=== PATIENT | female | born 1970 | race Caucasian/White ===

== ENCOUNTER 2016-09-28 10:03 | Emergency (ER) | payer OTHER ==
[~2016-09-28] VITALS: Ht 170.2 cm; Wt 87.8 kg
[~2016-09-28 10:03] MED LIST: ACHD5005 PO; ALPR.5T PO; ALPR1TAB2 PO; BSP5T; CYCL10TA9 PO; EST1.25T; ESZO3TAB30; ESZO3TAB30 PO; FLDR.1T; HYDR-3454 PO; HYOS0.3710 PO; MTP25TSR; NAPR500T PO; ONDN4T PO; OXYC-12 PO; OXYC-197 PO; OXYC-201 PO; PANT40TA2 PO; POLY17PO6 PO; QUET400T PO; SEROQUEL; SUCR1TAB36 PO
--- NOTE | 2016-09-28 11:28 | ED GI ---
General Chief Complaint: Abdominal/GI Problems Stated Complaint: ABD PAIN Nursing Triage Note: C/O ABD DISTENSION. STATES PAIN IS WORSE AFTER EATING OR MOVING Sepsis Screen: No Definite Risk Source of Information: Patient Exam Limitations: No Limitations History of Present Illness Time Seen By Provider: 11:26 Initial Comments To ER with abdominal distention and epigastric/periumbilical abdominal pain and firmness. This is been present for the past year since having her gallbladder out but worse for the past 4 days. She's had nausea and chills but no measured fever. No dysuria. Last bowel movement was yesterday and was normal. States that she's been excessively fatigued lately and states that her recent thyroid studies by her primary care physician were abnormal. She has seen Dr. Chris in [place] for this abdominal discomfort in the past and was told to "keep an eye on it" she states. She states that she was told that her common bile duct had "shut down" following an ERCP Timing/Duration: Getting Worse (chronic) Severity/Quality: Moderate Radiation: Epigastric Activities at Onset: None Associated Symptoms: Denies Symptoms Allergies and Home Medications Allergies Coded Allergies: hydrocodone (Unverified Adverse Reaction, Severe, ANXIETY, 08/22/15) Home Medications Alprazolam Unknown Strength Tablet, 1 MG PO TID, (Reported) Eszopiclone 3 Mg Tablet, 3 MG PO HS, (Reported) Ondansetron HCl 4 Mg Tab, 4 MG PO Q6H PRN for NAUSEA, (Reported) Pantoprazole Sodium 40 Mg Tablet.dr, 40 MG PO DAILY, #30 Ref 5 Prescribed by: CORONA ANDREWS on 08/26/15 1206 Polyethylene Glycol 3350 17 Gm Powd.pack, 17 GM PO BID for 10 Days Prescribed by: LOVE BEAVER on 09/02/15 1210 Quetiapine Fumarate 400 Mg Tablet, 400 MG PO HS, (Reported) Sucralfate 1 Gm Tablet, 1 GM PO TID, #30 Ref 0 Prescribed by: CORONA ANDREWS on 08/26/15 1207 Review of Systems Constitutional: see HPI EENTM: No Symptoms Reported Respiratory: No Symptoms Reported Gastrointestinal: See HPI, Abdominal Pain, Denies Constipated, Denies Diarrhea , Nausea Genitourinary: No Symptoms Reported Musculoskeletal: no symptoms reported Skin: no symptoms reported Psychiatric/Neurological: No Symptoms Reported Past Csqtzgz-Ncomoa-Tsgjiw Hx Patient Social History Alcohol Use: Occasionally Uses Recreational Drug Use: No Smoking Status: Current Everyday Smoker Type Used: Cigarettes Recent Foreign Travel: No Contact w/Someone Who Travel: No Recent Infectious Disease Expo: No Recent Hopitalizations: Yes Seasonal Allergies Seasonal Allergies: No Surgeries HX Surgeries: Yes (bladder surgery X3) Surgeries: Gallbladder Respiratory Hx Respiratory Disorders: No Cardiovascular Hx Cardiac Disorders: No Neurological Hx Neurological Disorders: No Reproductive System Hx Reproductive Disorders: No Sexually Transmitted Disease: No HIV/AIDS: No 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 Disorders: Denies 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 Genitourinary Hx Genitourinary Disorders: Yes Genitourinary Disorders: UTI-Chronic Gastrointestinal Hx Gastrointestinal Disorders: Yes Gastrointestinal Disorders: Gastroesophageal Reflux, Gall Bladder Disease, Irritable Bowel Musculoskeletal Hx Musculoskeletal Disorders: No Musculoskeletal Disorders: Arthritis Endocrine Hx Endocrine Disorders: No HEENT HX ENT Disorders: No (GLASSES) Loss of Vision: Bilateral Cancer Hx Cancer: No Psychosocial Hx Psychiatric Problems: Yes (PANIC ATTACKS) Behavioral Health Disorders: Anxiety, Depression Integumentary HX Skin/Integumentary Disorder: No Blood Transfusions Hx Blood Disorders: No Adverse Reaction to a Blood Tr: No Family Medical History Significant Family History: No Pertinent Family Hx Physical Exam Vital Signs VS - Last 72 Hours, by Label 09/28/16 10:33 Temp 98.7 Pulse 95 Resp 18 B/P (MAP) 109/67 Pulse Ox 98 O2 Delivery Room Air Capillary Refill : Less Than 3 Seconds General Appearance: WD/WN, no apparent distress HEENT: PERRL/EOMI, normal ENT inspection Neck: non-tender, full range of motion Respiratory: normal breath sounds, no respiratory distress, no accessory muscle use Cardiovascular: regular rate, rhythm, no murmur Gastrointestinal: normal bowel sounds, soft, abnormal bowel sounds (hypoactive) , other (firm) Extremities: normal range of motion, non-tender Neurologic/Psychiatric: alert, normal mood/affect, oriented x 3 Skin: normal color, warm/dry Progress/Results/Core Measures Results/Orders Lab Results Laboratory Tests Test 09/28/16 11:40 09/28/16 12:37 Range/Units White Blood Count 8.2 4.3-11.0 10^3/uL Red Blood Count 4.33 L 4.35-5.85 10^6/uL Hemoglobin 14.2 11.5-16.0 G/DL Hematocrit 43 35-52 % Mean Corpuscular Volume 100 H 80-99 FL Mean Corpuscular Hemoglobin 33 25-34 PG Mean Corpuscular Hemoglobin Concent 33 32-36 G/DL Red Cell Distribution Width 13.5 10.0-14.5 % Platelet Count 335 130-400 10^3/uL Mean Platelet Volume 10.0 7.4-10.4 FL Neutrophils (%) (Auto) 65 42-75 % Lymphocytes (%) (Auto) 25 12-44 % Monocytes (%) (Auto) 8 0-12 % Eosinophils (%) (Auto) 2 0-10 % Basophils (%) (Auto) 1 0-10 % Neutrophils # (Auto) 5.3 1.8-7.8 X 10^3 Lymphocytes # (Auto) 2.0 1.0-4.0 X 10^3 Monocytes # (Auto) 0.6 0.0-1.0 X 10^3 Eosinophils # (Auto) 0.2 0.0-0.3 10^3/uL Basophils # (Auto) 0.0 0.0-0.1 10^3/uL Sodium Level 141 135-145 MMOL/L Potassium Level 4.4 3.6-5.0 MMOL/L Chloride Level 106 98-107 MMOL/L Carbon Dioxide Level 26 21-32 MMOL/L Anion Gap 9 5-14 MMOL/L Blood Urea Nitrogen 16 7-18 MG/DL Creatinine 0.88 0.60-1.30 MG/DL Estimat Glomerular Filtration Rate > 60 BUN/Creatinine Ratio 18 Glucose Level 101 70-105 MG/DL Calcium Level 9.6 8.5-10.1 MG/DL Total Bilirubin 0.3 0.1-1.0 MG/DL Aspartate Amino Transf (AST/SGOT) 30 5-34 U/L Alanine Aminotransferase (ALT/SGPT) 41 0-55 U/L Alkaline Phosphatase 109 40-136 U/L Total Protein 7.4 6.4-8.2 G/DL Albumin 4.5 3.2-4.5 G/DL Lipase 10 8-78 U/L Thyroid Stimulating Hormone (TSH) 1.05 0.35-4.94 UIU/ML Free Thyroxine 0.76 0.70-1.48 NG/DL Urine Color YELLOW Urine Clarity CLEAR Urine pH 6 5-9 Urine Specific [place] 1.015 L 1.016-1.022 Urine Protein NEGATIVE NEGATIVE Urine Glucose (UA) NEGATIVE NEGATIVE Urine Ketones NEGATIVE NEGATIVE Urine Nitrite NEGATIVE NEGATIVE Urine Bilirubin NEGATIVE NEGATIVE Urine Urobilinogen NORMAL NORMAL MG/DL Urine Leukocyte Esterase NEGATIVE NEGATIVE Urine RBC (Auto) 1+ H NEGATIVE Urine RBC NONE /HPF Urine WBC 0-2 /HPF Urine Squamous Epithelial Cells 2-5 /HPF Urine Crystals NONE /LPF Urine Bacteria TRACE /HPF Urine Casts NONE /LPF Urine Mucus NEGATIVE /LPF Urine Culture Indicated NO My Orders Orders - LOVE BEAVER APRN Cbc With Automated Diff (09/28/16 11:24) Thyroid Stimulating Hormone (09/28/16 11:24) Free T4 (Free Thyroxine) (09/28/16 11:24) Comprehensive Metabolic Panel (09/28/16 11:24) Lipase (09/28/16 11:24) Ua Culture If Indicated (09/28/16 11:24) Saline Lock/Iv-Start (09/28/16 11:24) Ct Abdomen/Pelvis W (09/28/16 11:24) Ketorolac Injection (Toradol Injection) (09/28/16 11:30) Ondansetron Injection (Zofran Injectio (09/28/16 11:45) Iohexol Injection (Omnipaque 350 Mg/Ml 1 (09/28/16 12:15) Sodium Chloride Flush (Catheter Flush Sy (09/28/16 12:15) Ns (Ivpb) (Sodium Chloride 0.9% Ivpb Bag (09/28/16 12:15) Ns Iv 1000 Ml (Sodium Chloride 0.9%) (09/28/16 12:45) Medications Given in ED Current Medications Medications Dose Ordered Sig/Pascual Route Start Time Stop Time Status Last Admin Dose Admin Iohexol 100 ml ONCE ONCE IV 09/28/16 12:15 09/28/16 12:16 DC 09/28/16 12:56 100 ML Ketorolac Tromethamine 30 mg ONCE ONCE IVP 09/28/16 11:30 09/28/16 11:31 DC 09/28/16 11:48 30 MG Ondansetron HCl 4 mg ONCE ONCE IVP 09/28/16 11:45 09/28/16 11:46 DC 09/28/16 11:48 4 MG Sodium Chloride 100 ml ONCE ONCE IV 09/28/16 12:15 09/28/16 12:16 DC 09/28/16 12:57 80 ML Vital Signs/I&O Vital Sign - Last 12Hours 09/28/16 10:33 Temp 98.7 Pulse 95 Resp 18 B/P (MAP) 109/67 Pulse Ox 98 O2 Delivery Room Air Blood Pressure Mean: 81 Departure Impression Impression: Primary Impression: Abdominal pain Additional Impression: Ventral hernia without obstruction or gangrene Disposition: HOME, SELF-CARE Condition: Stable Departure-Patient Inst. Decision time for Depature: 13:12 Referrals: TRAVIS PEREZ MD (PCP/Family) Primary Care Physician GUILLERMO MARTINEZ BRETT D DO JENKINS, XAVIER M MD KIDO, TAKAAKI MD Patient Instructions: Acute Abdomen (Belly Pain), Adult (DC) Add. Discharge Instructions: 1. Follow-up with one of the surgeons 2. Pain medication as directed 3. All discharge instructions reviewed with patient and/or family. Voiced understanding. Scripts Oxycodone HCl/Acetaminophen (Oxycodone-Acetaminophen 5-325) 1 Each Tablet 1 EACH PO Q6H Y for PAIN-MODERATE, #14 TAB Prov: LOVE BEAVER MILIEU THERAPIST 09/28/16 Ondansetron (Zofran Odt) 8 Mg Tab.rapdis 8 MG PO Q6H Y for NAUSEA/VOMITING-1ST LINE, #10 TAB Prov: LOVE BEAVER MILIEU THERAPIST 09/28/16 LOVE BEAVER MILIEU THERAPIST September 28, 2016 11:28
[2016-09-28] MEDS ORDERED: KETOROLAC 30 MG/ML VIAL IVP ONE (11:30)
[2016-09-28] MEDS ORDERED: ONDANSETRON 4 MG/2 ML (SDV) Z0FRAN IVP ONE (11:45)
[2016-09-28 11:50] LABS: BASOPHILS % (AUTO) 1 % (0-10); EOSINOPHILS # (AUTO) 0.2 10^3/uL (0.0-0.3); EOSINOPHILS % (AUTO) 2 % (0-10); LYMPHOCYTES % (AUTO) 25 % (12-44); MEAN CORPUSCULAR HEMOGLOBIN 33 PG (25-34); MEAN CORPUSCULAR HGB CONC 33 G/DL (32-36); MEAN CORPUSCULAR VOLUME 100 FL (80-99); MONOCYTES # (AUTO) 0.6 X 10^3 (0.0-1.0); MONOCYTES % (AUTO) 8 % (0-12); NEUTROPHILS # (AUTO) 5.3 X 10^3 (1.8-7.8); NEUTROPHILS % (AUTO) 65 % (42-75); PLATELET COUNT 335 10^3/uL (130-400); RED BLOOD COUNT 4.33 10^6/uL (4.35-5.85); RED CELL DISTRIBUTION WIDTH 13.5 % (10.0-14.5); WHITE BLOOD COUNT 8.2 10^3/uL (4.3-11.0)
[2016-09-28 12:10] LABS: ALANINE AMINOTRANSFERASE 41 U/L (0-55); ALBUMIN 4.5 G/DL (3.2-4.5); ANION GAP 9 MMOL/L (5-14); ASPARTATE AMINO TRANSFERASE 30 U/L (5-34); BILIRUBIN,TOTAL 0.3 MG/DL (0.1-1.0); BLOOD UREA NITROGEN 16 MG/DL (7-18); BUN/CREATININE RATIO 18; CALCIUM 9.6 MG/DL (8.5-10.1); CARBON DIOXIDE 26 MMOL/L (21-32); CHLORIDE 106 MMOL/L (98-107); CREATININE SERUM 0.88 MG/DL (0.60-1.30); GFR ESTIMATED > 60; GLUCOSE 101 MG/DL (70-105); LIPASE 10 U/L (8-78); POTASSIUM 4.4 MMOL/L (3.6-5.0); SODIUM 141 MMOL/L (135-145); TOTAL PROTEIN 7.4 G/DL (6.4-8.2)
[2016-09-28] MEDS ORDERED: CATHETER FLUSH 10 ML SYR IV PRN (12:15)
[2016-09-28] MEDS ORDERED: IOHEXOL 350 MG/ML 100 ML (OMNIPAQUE 350) VIAL IV ONE (12:15)
[2016-09-28] MEDS ORDERED: NS 100 ML (IVPB) BAG IV ONE (12:15)
[2016-09-28 12:31] LABS: THYROID STIMULATING HORMONE 1.05 UIU/ML (0.35-4.94)
[2016-09-28] MEDS ORDERED: NS IV 1000 ML 1,000 ML IV SCH (12:45)
[2016-09-28 12:54] LABS: BILIRUBIN,URINE NEGATIVE (NEGATIVE); KETONES,URINE NEGATIVE (NEGATIVE); LEUKOCYTE ESTERASE ,URINE NEGATIVE (NEGATIVE); NITRITE,URINE NEGATIVE (NEGATIVE); PH,URINE 6 (5-9); PROTEIN,URINE NEGATIVE (NEGATIVE); UROBILINOGEN,URINE NORMAL (NORMAL)
[2016-09-28 13:07] LABS: WBC,URINE 0-2 /HPF
[2016-09-28] MEDS ORDERED: OXYC-471 PO (13:16)
[2016-09-28] MEDS ORDERED: ONDA8TAB9 PO (13:16)
--- NOTE | 2016-09-28 13:22 | Diagnostic Imaging Report ---
PROCEDURE: CT abdomen and pelvis with contrast. TECHNIQUE: Multiple contiguous axial images were obtained through the abdomen and pelvis after administration of intravenous contrast. INDICATION: Nausea x5 days. Recent cholecystectomy. COMPARISON: 09/02/2015 FINDINGS: Included views of the lung bases are clear. CT abdomen: Simple-appearing right renal cyst is noted. Otherwise, the kidneys, adrenal glands, spleen, pancreas, and liver have a normal appearance. Small bowel loops are nondistended. Moderate air and stool is seen scattered throughout the colon. Normal appendix is identified. There is an umbilical hernia containing both fat and loop of small bowel. [place] measures approximately 4.5 cm in transverse dimension. There is no evidence of underlying strangulation or obstruction. There is no loculated fluid collection, free fluid or free air within the abdomen. No abnormal mesenteric or retroperitoneal adenopathy is seen. There is mild calcified aortic and arterial atherosclerosis. Bony structures show no acute abnormalities. CT pelvis: Urinary bladder is grossly unremarkable. There is no loculated fluid collection, free fluid or free air within the pelvis. No abnormal lymph nodes are seen. Bony structures show no acute abnormalities. Note is made of chronic appearing bilateral L5 pars defects. IMPRESSION: 1. No acute abnormalities within the abdomen or pelvis. 2. Moderate colonic air and stool. Please correlate for constipation. 3. Umbilical hernia containing a loop of small bowel, but no evidence of underlying obstruction or strangulation. Dictated by: Dictated on workstation # [id number]
[2016-09-28 13:52] VITALS: BP 114/66
== END 2016-09-28 13:52 | disposition home or self-care (01) ==
LOC: EDUNIT# 10:03 → ER 10:05
DX: R14.0 Abdominal distension (gaseous) (principal); R10.13 Epigastric pain; F17.210 Nicotine dependence, cigarettes, uncomplicated; Z79.899 Other long term (current) drug therapy; Z90.49 Acquired absence of other specified parts of digestive tract
CPT/HCPCS: 36415; 74177; 80053; 81000; 83690; 84439; 84443; 85025; 96374; 96375

== ENCOUNTER → 2016-10-05 | Outpatient (CLI) | payer OTHER ==
[~2016-10-05] MED LIST changes: +ONDA8TAB9 PO; +OXYC-471 PO
--- NOTE | 2016-10-05 16:07 | Diagnostic Imaging Report ---
PROCEDURE: US Thyroid. TECHNIQUE: Multiple real-time grayscale images were obtained of the thyroid in various projections. INDICATION: Hypothyroidism. FINDINGS: The right lobe is 5.3 x 2 x 1.7 cm. The left lobe is 5 x 1.7 x 1.8 cm. There are mixed solid and cystic nodules measuring 0.9 cm in the left thyroid lobe seen adjacent to each other and there is another lesion in the left thyroid lobe more superiorly in the mid gland measuring 0.8 cm. This does not have any internal vascularity associated with this. Tiny hypoechoic lesions in the right thyroid lobe are seen less than 3 mm. IMPRESSION: Multiple subcentimeter thyroid nodules likely related to multinodular goiter. Dictated by: Dictated on workstation # [id number]
== END ==
LOC: RAD 14:54
PROVIDERS: ATTEND Surgery
DX: E03.9 Hypothyroidism, unspecified (principal)
CPT/HCPCS: 76536

== ENCOUNTER → 2016-10-05 | Outpatient (CLI) | payer OTHER ==
[~2016-10-05] VITALS: Ht 170.2 cm; Wt 93.4 kg
[2016-10-05 15:51] VITALS: BP 115/76
== END ==
LOC: PREOP 15:37
PROVIDERS: ATTEND Surgery
DX: Z01.818 Encounter for other preprocedural examination (principal); Z11.2 Encounter for screening for other bacterial diseases; K43.9 Ventral hernia without obstruction or gangrene
CPT/HCPCS: 87081

== ENCOUNTER 2016-10-07 11:10 | Day surgery (SDC) | payer OTHER ==
[~2016-10-07] VITALS: Ht 170.2 cm; Wt 93.4 kg
[2016-10-07 11:10] VITALS: BP 114/75
--- NOTE | 2016-10-07 11:53 | Progress Note-Pre Operative ---
Pre-Operative Progress Note H&P Reviewed The H&P was reviewed, patient examined and no changes noted. Date H&P Reviewed: October 07, 2016 Time H&P Reviewed: 11:53 Pre-Operative Diagnosis: Ventral hernia CORONA ANDREWS MD October 07, 2016 11:53 am
[2016-10-07] MEDS ORDERED: oxyCODONE ER 10 MG (OxyCONTIN CR) TAB PO ONE ×2 (12:00→15:30)
[2016-10-07] MEDS ORDERED: ACETAMINOPHEN 500 MG TAB (TYLENOL) PO ONE ×2 (12:00→15:30)
[2016-10-07] MEDS ORDERED: CELECOXIB 100 MG (CeleBREX) CAP PO ONE ×2 (12:00→15:30)
[2016-10-07] MEDS ORDERED: ceFAZolin 2 GM/50 ML NS 50 ML ONE (12:00)
[2016-10-07] MEDS ORDERED: PREGABALIN 75 MG (LYRICA) CAP PO ONE ×2 (12:00→15:30)
[2016-10-07] MEDS ORDERED: CATHETER FLUSH 10 ML SYR IV PRN (12:15)
[2016-10-07] MEDS ORDERED: ceFAZolin 2 GM/NS 50 ML IV ONE (12:15)
[2016-10-07] MEDS ORDERED: LIDOCAINE 1% 10 MG/ML 0.2 ML SYR (FOR IV START) ONE (12:47)
[2016-10-07] MEDS ORDERED: BUP/EPI 0.25% 1:200,000 (MARCAINE) 30 ML VIAL ONE (12:55)
[2016-10-07] MEDS: LACTATED RINGERS 1,000 ML IV PRN ×2 (13:00→14:24)
[2016-10-07] MEDS ORDERED: FAMOTIDINE 20MG/2ML IV (PEPCID) ONE (13:05)
[2016-10-07] MEDS ORDERED: MIDAZOLAM 2 MG/2 ML (VERSED) VIAL ONE ×2 (13:06→13:07)
[2016-10-07] MEDS ORDERED: LIDOCAINE PF 2% 10 ML (XYLOCAINE) AMP ONE (13:07)
[2016-10-07] MEDS ORDERED: LIDOCAINE PF 0.5% 50 ML (XYLOCAINE) VIAL ONE (13:07)
[2016-10-07] MEDS ORDERED: LACTATED RINGERS 2,000 ML IV ONE (13:07)
[2016-10-07] MEDS ORDERED: ONDANSETRON 4 MG/2 ML (SDV) Z0FRAN ONE ×2 (13:07→15:09)
[2016-10-07] MEDS ORDERED: KETAMINE HCL 100 MG/ML 5 ML VIAL ONE (13:07)
[2016-10-07] MEDS ORDERED: DEXAMETHASONE PF 10 MG/ML (DECADRON) VIAL ONE (13:07)
[2016-10-07] MEDS ORDERED: ROCURONIUM 50 MG/5 ML (ZEMURON) VIAL IV ONE ×3 (13:07→14:59)
[2016-10-07] MEDS ORDERED: proPOfol 200 MG/20 ML (DIPRIVAN) VIAL IV ONE (13:07)
[2016-10-07] MEDS ORDERED: FAMOTIDINE 20MG/2ML IV (PEPCID) IV ONE (13:15)
[2016-10-07] MEDS ORDERED: MIDAZOLAM 2 MG/2 ML (VERSED) VIAL IV ONE (13:15)
[2016-10-07] MEDS ORDERED: NS (IVPB) 100 ML ONE (13:23)
[2016-10-07] MEDS ORDERED: SEVOFLURANE (ULTANE) 15 ML INHAL SOLN ONE ×2 (15:02→15:16)
[2016-10-07] MEDS ORDERED: MEPERIDINE (DEMEROL) INJ 50 MG/ML ONE (15:08)
[2016-10-07] MEDS ORDERED: HYDROmorphone (DILAUDID) 2 MG/ML VIAL ONE (15:08)
[2016-10-07] MEDS ORDERED: morphine INJ 10 MG/ML 1ML (SYR OR VIAL) ONE (15:08)
[2016-10-07] MEDS ORDERED: KETOROLAC 30 MG/ML VIAL ONE ×2 (15:08→15:17)
[2016-10-07] MEDS ORDERED: PROMETHAZINE INJ 25 MG/ML (PHENERGAN) AMP ONE (15:09)
[2016-10-07] MEDS ORDERED: GLYCOPYRROLATE 0.2 MG/ML (ROBINUL) 2 ML VIAL ONE (15:13)
[2016-10-07] MEDS ORDERED: NEOSTIGMINE (BLOXIVERZ ) 1 MG/1ML 10 ML VIAL ONE (15:13)
[2016-10-07] MEDS ORDERED: fentaNYL INJECTION 100 MCG/2 ML AMP ONE (15:17)
--- NOTE | 2016-10-07 15:28 | Progress Note-Post Operative ---
Post-Operative Progess Note Surgeon (s)/Transformation Architect (s) Surgeon CORONA ANDREWS MD Transformation Architect: Not applicable Pre-Operative Diagnosis Ventral hernia Post-Operative Diagnosis Same Procedure & Operative Findings Date of Procedure 10/07/16 Procedure Performed/Findings Robotic assisted repair with mesh Anesthesia Type Gen. Estimated Blood Loss Estimated blood loss (mL): Minimal Specimens/Packing Specimens Removed None CORONA ANDREWS MD October 07, 2016 3:28 pm
[2016-10-07] MEDS ORDERED: oxyCODONE/APAP 5/325MG (PERCOCET 5) TABLET PO PRN (15:30)
[2016-10-07] MEDS ORDERED: morphine INJ 4 MG/ML 1 ML (VIAL/SYRINGE) IV PRN (15:30)
[2016-10-07] MEDS ORDERED: OXYC-197 PO (15:31)
--- NOTE | 2016-10-07 15:32 | Discharge Inst-Simple/Standard ---
Discharge Inst-Standard Discharge Medications New, Converted or Re-Newed RX: RX on Chart Patient Instructions/Follow Up Plan of Care/Instructions/FU: Dressings off in 48 hours. Abdominal binder while moving around. Follow-up in 4 weeks Activity as Tolerated: No Goal: No lifting over 10 pounds Discharge Diet: No Restrictions CORONA ANDREWS MD October 07, 2016 3:31 pm
[2016-10-07] MEDS ORDERED: ONDANSETRON 4 MG/2 ML (SDV) Z0FRAN IVP PRN (15:45)
[2016-10-07] MEDS ORDERED: fentaNYL INJECTION 100 MCG/2 ML AMP IVP PRN (15:45)
[2016-10-07] MEDS: morphine INJ 10 MG/ML 1ML (SYR OR VIAL) IVP PRN ×2 (15:53→15:59)
[2016-10-07] MEDS ORDERED: MEPERIDINE (DEMEROL) INJ 50 MG/ML IVP PRN (16:15)
[2016-10-07] MEDS: HYDROmorphone (DILAUDID) 2 MG/ML VIAL IVP PRN ×2 (16:16→16:20)
[2016-10-07] MEDS ORDERED: PROMETHAZINE INJ 25 MG/ML (PHENERGAN) AMP IVP PRN (16:30)
[2016-10-07 17:00] VITALS: BP 120/84
[2016-10-07] MEDS: KETOROLAC 30 MG/ML VIAL IV SCH ×2 (17:22→17:23)
[2016-10-07] MEDS: KETOROLAC 15 MG/ML VIAL IV SCH ×2 (17:49→23:32)
[2016-10-07] MEDS: morphine INJ 4 MG/ML 1 ML (VIAL/SYRINGE) IV PRN ×2 (18:29→23:32)
[2016-10-07 19:55] VITALS: BP 136/86
[2016-10-07] MEDS ORDERED: QUETIAPINE FUMARATE 400 MG PO SCH (21:00)
[2016-10-07] MEDS ORDERED: ALPRAZOLAM 1 MG PO SCH (21:00)
[2016-10-07] MEDS ORDERED: QUEtiapine 200 MG (SEROquel) TAB IMMEDIATE RELEASE PO SCH (21:00)
[2016-10-07] MEDS: ALPRAZolam 1 MG (XANAX) TAB PO SCH (21:01)
[2016-10-08 00:23] VITALS: BP 118/70
[2016-10-08 04:36] VITALS: BP 109/60
[2016-10-08] MEDS: KETOROLAC 15 MG/ML VIAL IV SCH (05:24)
--- NOTE | 2016-10-08 06:51 | OPERATIVE REPORT ---
DATE OF SERVICE: 10/07/2016 PREOPERATIVE DIAGNOSIS: Ventral hernia. POSTOPERATIVE DIAGNOSIS: Ventral hernia. OPERATION: Robotic-assisted repair of ventral hernia with mesh. SURGEON: Corona Andrews MD ANESTHESIA: General anesthesia. BLOOD LOSS: Minimal. FLUIDS: 1400 cc of crystalloids. TYPE OF WOUND: Type 1 (clean wound). INDICATION FOR PROCEDURE: This lady presented with a symptomatic ventral hernia just superior to her umbilicus. She was offered minimally-invasive repair with robotic assistance and reinforcement with a mesh. Informed consent was obtained after reviewing operative details and complications of hematoma, infection of the mesh and recurrence of the hernia. DESCRIPTION OF PROCEDURE: She was placed supine on the operating room table and had general anesthesia induced using an endotracheal tube. Prophylactic antibiotics were administered intravenously to prevent wound infection. Sequential compression devices were placed around her legs, to minimize the risk of venous thrombus. Subsequently, the right side of her body was tilted up using a soft roll, to facilitate triangulation of the robotic system. Abdomen was prepared and draped in the usual sterile manner. Pneumoperitoneum was established using a Veress needle introduced over the right subcostal margin along the mid axillary line. Intraabdominal pressure was maintained at 15 mmHg, using carbon dioxide insufflation. A 12 mm trocar was placed and anatomy visualized using the three-dimensional, high definition laparoscope associated with [employer] system. Omentum was contained within the hernia. Under direct view, I placed another 12 mm trocar over the right side of abdomen, along the mid axillary line, followed by an 8 mm trocar over the right lower quadrant. The robotic system was then docked in place. Omentum was taken using hook cautery revealing a defect measuring 4 cm transversally and about 5 cm vertically. It was approximated using 0 V-Loc permanent suture with robotic assistance in 2 directions. Subsequently, the repair was reinforced with a polypropylene mesh measuring 15.4 cm in diameter. A self-retaining balloon system was used to facilitate holding the mesh up, during the suturing process. The edges of the mesh were then secured to the abdominal wall using 2-0 V-Loc suture with robotic assistance. Hemostasis was adequate and the operation concluded. Incisions were then closed using 4-0 Vicryl in subcuticular fashion. Marcaine 0.25% with epinephrine was infiltrated along the incisions, both preemptively and at the conclusion of the operation. She tolerated the procedure well, was extubated in the operating room and taken to recovery room in a stable condition. [place], sponges and instruments were correct at the end of the operation. Job ID: [id number] DocumentID: [id number] Dictated Date: 10/07/2016 15:26:58 Net Making Supervisor Date: 10/08/2016 03:11:40 Dictated By: CORONA ANDREWS MD MTDD
[2016-10-08] MEDS: ALPRAZolam 1 MG (XANAX) TAB PO SCH (07:55)
[2016-10-08 08:00] VITALS: BP 108/73
--- NOTE | 2016-10-08 12:46 | Progress Note-Standard ---
Standard Progress Note Progress Notes/Assess & Plan Progress/Assessment & Plan 10/08/16:postoperative pain control much improved. Ambulating independently. Incisions dry. Could be discharged home Final Diagnosis ventral hernia CORONA ANDREWS MD October 08, 2016 12:46 pm
[2016-10-08] MEDS ORDERED: ZOLPIDEM 5 MG (AMBIEN) TAB PO SCH (21:00)
== END 2016-10-08 11:40 | disposition home or self-care (01) ==
LOC: SDC 11:10 → 4TH 17:38 → ENPENDDIS 10-08 11:00 → SDC 10-08 11:40
PROVIDERS: ATTEND Surgery
DX: K43.9 Ventral hernia without obstruction or gangrene (principal)

== ENCOUNTER 2018-01-17 10:30 | Emergency (ER) | payer BC, OTHER ==
[~2018-01-17] VITALS: Ht 170.2 cm; Wt 95.3 kg
[~2018-01-17 10:30] MED LIST changes: +NAPR-1071 PO; -NAPR500T PO; -OXYC-197 PO; -OXYC-201 PO; +OXYC1TAB16 PO; +OXYC1TAB87 PO
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
[2018-01-17] MEDS ORDERED: FAMOTIDINE 20 MG (PEPCID) TABLET PO STA (11:06)
[2018-01-17] MEDS ORDERED: KETOROLAC 30 MG/ML VIAL IM ONE (11:15)
[2018-01-17] MEDS ORDERED: LIDOCAINE 2% VISCOUS 15 ML UDC PO ONE (11:15)
[2018-01-17] MEDS ORDERED: ANTACID SUSP 30 ML UDC (MYLANTA) PO ONE (11:15)
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
--- NOTE | 2018-01-17 11:52 | Diagnostic Imaging Report ---
PROCEDURE: CT lumbar spine without contrast. TECHNIQUE: Multiple contiguous axial images were obtained through the lumbar spine without the use of intravenous contrast. Sagittal and coronal reformations were then performed. INDICATION: Back pain with bilateral leg numbness. Findings: There is bilateral spondylolysis of L5. There is grade 2 spondylolisthesis of L5 anterior on S1. This is causing considerable encroachment upon the neural foramen bilaterally. No evidence of central canal stenosis. Body height is well maintained throughout. Canal appears normal throughout from the L4-5 to L1. No evidence of disc herniation. No significant facet hypertrophy. IMPRESSION: Bilateral spondylolysis of L5 with grade 2 spondylolisthesis of L5 anteriorly on S1 causing considerable encroachment upon the neural foramen bilaterally. Dictated by: Dictated on workstation # [id number]
[2018-01-17] MEDS ORDERED: OXYC-471 PO (12:57)
[2018-01-17] MEDS ORDERED: PRD20T PO (12:57)
[2018-01-17 13:07] VITALS: BP 120/78
== END 2018-01-17 13:07 | disposition home or self-care (01) ==
LOC: EDUNIT# 10:30 → ER 10:33
DX: M43.17 Spondylolisthesis, lumbosacral region (principal); M54.41 Lumbago with sciatica, right side; M54.42 Lumbago with sciatica, left side; K21.9 Gastro-esophageal reflux disease without esophagitis; F41.9 Anxiety disorder, unspecified; F32.9 Major depressive disorder, single episode, unspecified; Z98.890 Other specified postprocedural states; Z88.5 Allergy status to narcotic agent; Z98.51 Tubal ligation status; Z90.710 Acquired absence of both cervix and uterus; Z87.440 Personal history of urinary (tract) infections; Z87.19 Personal history of other diseases of the digestive system
CPT/HCPCS: 72131; 96372

== ENCOUNTER → 2018-02-03 | Outpatient (CLI) | payer BC ==
[~2018-02-03] MED LIST changes: +PRD20T PO
--- NOTE | 2018-02-03 10:48 | Diagnostic Imaging Report ---
PROCEDURE: MRI lumbar spine. TECHNIQUE: Multiplanar, multisequence MRI of the lumbar spine was performed without contrast. INDICATION: Constant low back pain and bilateral leg pain. COMPARISON: Comparison is made to CT scan of the lumbar spine dated 01/17/2018. FINDINGS: Similar to the previous study, there is bilateral L5 spondylolysis with grade 2 spondylolisthesis of L5 on S1. The remainder of lumbar alignment is unremarkable. There is slight left convexity curvature. There is no significant spinal stenosis. There is a small central protrusion of the L4-L5 disc without significant stenosis. Moderately severe bilateral neuroforaminal stenosis is noted at L5-S1. There is no marrow signal abnormality to indicate fracture. IMPRESSION: Grade 2 anterolisthesis of L5 on S1 similar to previous CT examination. There is moderately severe bilateral neuroforaminal stenosis without significant spinal stenosis identified. There is a small central protrusion of L4-L5 disc without significant stenosis. Dictated by: Dictated on workstation # [id number]
--- NOTE | 2018-02-03 12:55 | Diagnostic Imaging Report ---
CLINICAL INDICATION: Patient gets upper/mid back pain at times. No arm pain or numbness. EXAM: MRI of the thoracic spine performed without IV contrast. Sequences include sagittal T1, sagittal T2, sagittal T2 fat-sat, and axial T2. COMPARISON: None. FINDINGS: Thoracic spine has normal alignment with no acute fracture or dislocation. There is heterogeneous T1 and T2 signal throughout the thoracic vertebrae with low T1/T2 signal seen. The low T1 signal is not lower than the intervertebral disc. There are patchy areas of high T1/high T2 signal scattered throughout the thoracic vertebrae which may represent intraosseous hemangiomas and/or residual fatty marrow. Intraosseous hemangioma is seen within the left side of the T8 vertebra. There are Modic type 2 degenerative signal changes anteriorly involving the mid thoracic vertebrae with associated mildly hypertrophic anterior spurs. There are chronic Schmorl's nodes seen scattered throughout the mid and lower lumbar spine, which appear chronic. There is mild bilateral facet arthropathy which is most pronounced at the T9-T10 level. There is mild central canal narrowing at the T9-T10 level due to bilateral facet arthropathy. There is no significant neural foramen narrowing. There is a small central posterior disc extrusion/herniation at the T3-T4 level, which causes minimal impression upon the thecal sac anteriorly. There is a small right paracentral posterior disc bulge at the T4-T5 level, which causes no significant central canal narrowing. There is no significant paraspinal soft tissue abnormality. Visualized portion of the thoracic spinal cord has normal caliber and signal. There is a small cyst involving the right kidney. IMPRESSION: 1: There is mild multilevel thoracic spine degenerative disc disease with no major central canal or neural foramen narrowing. 2: The thoracic spinal cord shows no significant abnormality. Dictated by: Dictated on workstation # [id number]
== END ==
LOC: RAD 09:08
PROVIDERS: ATTEND Nurse Practitioner Family
DX: M43.16 Spondylolisthesis, lumbar region (principal); M99.73 Connective tissue and disc stenosis of intervertebral foramina of lumbar region; M51.26 Other intervertebral disc displacement, lumbar region; M51.34 Other intervertebral disc degeneration, thoracic region
CPT/HCPCS: 72146; 72148

== ENCOUNTER → 2018-02-04 | Outpatient (CLI) | payer BC ==
--- NOTE | 2018-02-04 11:47 | Diagnostic Imaging Report ---
PROCEDURE: MRI pelvis without contrast. TECHNIQUE: Multiplanar, multisequence MRI of the pelvis was performed without contrast. INDICATION: Sacral pain. FINDINGS: There is no abnormal signal arising from the visualized bony pelvis, sacrum or coccyx to suggest an acute abnormality. On the STIR sagittal series, however, there is a small amount of increased signal about the sacrococcygeal junction. This may be related to mild edema/inflammation of the soft tissues. There is no sign of a soft tissue mass or abscess in this area. There is no pelvic mass or free fluid collection identified either. The severe degenerative disc and bony disease at the L5-S1 level seen on the recent MRI lumbar spine exam of 02/03/2018 is again evident and no different. IMPRESSION: 1. There is no evidence for an acute bony abnormality. 2. The small amount of altered signal about the sacrococcygeal junction does suggest there is an element of mild edema/inflammation in this area. 3. There is no pelvic mass or abscess visualized. Dictated by: Dictated on workstation # [id number]
== END ==
LOC: RAD 08:03
PROVIDERS: ATTEND Nurse Practitioner Family
DX: M53.3 Sacrococcygeal disorders, not elsewhere classified (principal); M54.5 Low back pain
CPT/HCPCS: 72195

== ENCOUNTER 2018-03-08 07:19 | Emergency (ER) | payer BC ==
[~2018-03-08] VITALS: Ht 170.2 cm; Wt 98.9 kg
--- OUTSIDE RECORDS SUMMARY | 2018-03-08 07:27 | XMS REPORT | Continuity of Care Document ---
Author Author [facility] Organization [facility] [address] Address Unknown Phone Unavailable Allergies Active Description Code Type Severity Reaction Onset Reported/Identified Relationship to Patient Clinical Status Yes hydrocodone [id number] Drug Allergy Severe ANXIETY 10/07/2016 Medications There [...] K63.5 POLYP OF COLON 09/02/2015 LOVE BEAVER [employer] Ot K52.9 NONINFECTIVE GASTROENTERITIS AND COLITIS 09/02/2015 [employer] Ot K59.00 CONSTIPATION, UNSPECIFIED 09/02/2015 [employer] Ot R74.8 ABNORMAL LEVELS OF OTHER SERUM ENZYMES 09/03/2015 [employer] Ot K52.9 NONINFECTIVE GASTROENTERITIS AND COLITIS 09/03/2015 [employer] Ot K59.00 CONSTIPATION, UNSPECIFIED 09/03/2015 [employer] Ot R74.8 ABNORMAL LEVELS OF OTHER SERUM ENZYMES 10/08/2015 TRAVIS TAVAREZ MD Ot R10.11 RIGHT UPPER QUADRANT PAIN 10/08/2015 TRAVIS TAVAREZ MD Ot R10.9 UNSPECIFIED ABDOMINAL PAIN 10/08/2015 TRAVIS TAVAREZ MD Ot R10.11 RIGHT UPPER QUADRANT PAIN 10/08/2015 TRAVIS TAVAREZ MD Ot R10.9 UNSPECIFIED ABDOMINAL PAIN 09/28/2016 [employer] Ot F17.210 NICOTINE DEPENDENCE, CIGARETTES, UNCOMPL 09/28/2016 [employer] Ot R10.13 EPIGASTRIC PAIN 09/28/2016 [employer] Ot R14.0 ABDOMINAL DISTENSION (GASEOUS) 09/28/2016 [employer] Ot Z79.899 OTHER FPC (CURRENT) DRUG THERAPY 09/28/2016 [employer] Ot Z90.49 ACQUIRED ABSENCE OF OTHER SPECIFIED PART 09/28/2016 TRAVIS TAVAREZ MD Ot R10.11 RIGHT UPPER QUADRANT PAIN 09/28/2016 TRAVIS TAVAREZ MD Ot R10.9 UNSPECIFIED ABDOMINAL PAIN 10/06/2016 CORONA ANDREWS MD Ot K43.9 VENTRAL HERNIA [...] Ot E03.9 HYPOTHYROIDISM, UNSPECIFIED 10/28/2016 CORONA ANDREWS MD Ot K43.9 VENTRAL HERNIA WITHOUT OBSTRUCTION OR GA 01/17/2018 TRAVIS TAVAREZ MD Ot R10.11 RIGHT UPPER QUADRANT PAIN 01/17/2018 TRAVIS TAVAREZ MD Ot R10.9 UNSPECIFIED ABDOMINAL PAIN 01/17/2018 CORONA ANDREWS MD Ot E03.9 HYPOTHYROIDISM, UNSPECIFIED 01/17/2018 CORONA ANDREWS MD Ot K43.9 VENTRAL HERNIA WITHOUT OBSTRUCTION OR GA 01/17/2018 JULIANA REYEZ, CORONA Torre Ot Z01.818 ENCOUNTER FOR OTHER PREPROCEDURAL EXAMIN 01/17/2018 JULIANA REYEZ, CORONA Torre Ot Z11.2 ENCOUNTER FOR SCREENING FOR OTHER BACTER 01/17/2018 KEE NUNEZ MD Ot F32.9 MAJOR DEPRESSIVE DISORDER, SINGLE EPISOD 01/17/2018 KEE NUNEZ MD Ot F41.9 ANXIETY DISORDER, UNSPECIFIED 01/17/2018 KEE NUNEZ MD Ot K21.9 GASTRO-ESOPHAGEAL REFLUX DISEASE WITHOUT 01/17/2018 KEE NUNEZ MD Ot M43.17 SPONDYLOLISTHESIS, LUMBOSACRAL REGION 01/17/2018 KEE NUNEZ MD Ot M54.41 LUMBAGO WITH SCIATICA, RIGHT SIDE 01/17/2018 KEE NUNEZ MD Ot M54.42 LUMBAGO WITH SCIATICA, LEFT SIDE 01/17/2018 KEE NUNEZ MD Ot M54.5 LOW BACK PAIN 01/17/2018 KEE NUNEZ MD Ot Z87.19 PERSONAL HISTORY OF OTHER DISEASES OF TH 01/17/2018 KEE NUNEZ MD Ot Z87.440 PERSONAL HISTORY OF URINARY (TRACT) INFE 01/17/2018 KEE NUNEZ MD Ot Z88.5 ALLERGY STATUS TO NARCOTIC AGENT STATUS 01/17/2018 KEE NUNEZ MD Ot Z90.710 ACQUIRED ABSENCE OF BOTH CERVIX AND UTER 01/17/2018 KEE NUNEZ MD Ot Z98.51 TUBAL LIGATION STATUS 01/17/2018 KEE NUNEZ MD Ot Z98.890 OTHER SPECIFIED POSTPROCEDURAL STATES 01/19/2018 KEE NUNEZ MD Ot F32.9 MAJOR DEPRESSIVE DISORDER, SINGLE EPISOD 01/19/2018 KEE NUNEZ MD Ot F41.9 ANXIETY DISORDER, UNSPECIFIED 01/19/2018 KEE NUNEZ MD Ot K21.9 GASTRO-ESOPHAGEAL REFLUX DISEASE WITHOUT 01/19/2018 KEE NUNEZ MD Ot M43.17 SPONDYLOLISTHESIS, LUMBOSACRAL REGION 01/19/2018 KEE NUNEZ MD Ot M54.41 LUMBAGO WITH SCIATICA, RIGHT SIDE 01/19/2018 KEE NUNEZ MD Ot M54.42 LUMBAGO WITH SCIATICA, LEFT SIDE 01/19/2018 KEE NUNEZ MD Ot M54.5 LOW BACK PAIN 01/19/2018 KEE NUNEZ MD Ot Z87.19 PERSONAL HISTORY OF OTHER DISEASES OF TH 01/19/2018 KEE NUNEZ MD Ot Z87.440 PERSONAL HISTORY OF URINARY (TRACT) INFE 01/19/2018 KEE NUNEZ MD Ot Z88.5 ALLERGY STATUS TO NARCOTIC AGENT STATUS 01/19/2018 KEE NUNEZ MD Ot Z90.710 ACQUIRED ABSENCE OF BOTH CERVIX AND UTER 01/19/2018 KEE NUNEZ MD Ot Z98.51 TUBAL LIGATION STATUS 01/19/2018 KEE NUNEZ MD Ot Z98.890 OTHER SPECIFIED POSTPROCEDURAL STATES 02/02/2018 TRAVIS TAVAREZ MD Ot R10.11 RIGHT UPPER QUADRANT PAIN 02/02/2018 TRAVIS TAVAREZ MD Ot R10.9 UNSPECIFIED ABDOMINAL PAIN 02/02/2018 CORONA ANDREWS MD Ot E03.9 HYPOTHYROIDISM, UNSPECIFIED 02/02/2018 CORONA ANDREWS MD Ot K43.9 VENTRAL HERNIA WITHOUT OBSTRUCTION OR GA 02/02/2018 CORONA ANDREWS MD Ot Z01.818 ENCOUNTER FOR OTHER PREPROCEDURAL EXAMIN 02/02/2018 CORONA ANDREWS MD Ot Z11.2 ENCOUNTER FOR SCREENING FOR OTHER BACTER 02/03/2018 TRAVIS TAVAREZ MD Ot R10.11 RIGHT UPPER QUADRANT PAIN 02/03/2018 TRAVIS TAVAREZ MD Ot R10.9 UNSPECIFIED ABDOMINAL PAIN 02/03/2018 CORONA ANDREWS MD Ot E03.9 HYPOTHYROIDISM, UNSPECIFIED 02/03/2018 CORONA ANDREWS MD Ot K43.9 VENTRAL HERNIA WITHOUT OBSTRUCTION OR GA 02/03/2018 CORONA ANDREWS MD Ot Z01.818 ENCOUNTER FOR OTHER PREPROCEDURAL EXAMIN 02/03/2018 CORONA ANDREWS MD Ot Z11.2 ENCOUNTER FOR SCREENING FOR OTHER BACTER 02/04/2018 TRAVIS TAVAREZ MD Ot R10.11 RIGHT UPPER QUADRANT PAIN 02/04/2018 TRAVIS TAVAREZ MD Ot R10.9 UNSPECIFIED ABDOMINAL PAIN 02/04/2018 CORONA ANDREWS MD Ot E03.9 HYPOTHYROIDISM, UNSPECIFIED 02/04/2018 JULIANA REYEZ, CORONA Torre Ot K43.9 VENTRAL HERNIA WITHOUT OBSTRUCTION OR GA 02/04/2018 JULIANA REYEZ, CORONA Torre Ot Z01.818 ENCOUNTER FOR OTHER PREPROCEDURAL EXAMIN 02/04/2018 JULIANA REYEZ, CORONA Torre Ot Z11.2 ENCOUNTER FOR SCREENING FOR OTHER BACTER 02/07/2018 KAYLEN, MIGDALIA [employer] Ot M43.16 SPONDYLOLISTHESIS, LUMBAR REGION 02/07/2018 KAYLEN, MIGDALIA [employer] Ot M51.26 OTHER INTERVERTEBRAL DISC DISPLACEMENT, 02/07/2018 KAYLEN, MIGDALIA [employer] Ot M51.34 OTHER INTERVERTEBRAL DISC DEGENERATION, 02/07/2018 KAYLEN, MIGDALIA [employer] Ot M99.73 CONN TISS AND DISC STENOS OF INTVRT FORA 02/07/2018 KAYLEN MIGDALIA [employer] Ot M53.3 SACROCOCCYGEAL DISORDERS, NOT ELSEWHERE 02/07/2018 KAYLEN MIGDALIA [employer] Ot M54.5 LOW BACK PAIN 02/16/2018 KAYLEN MIGDALIA [employer] Ot M43.16 SPONDYLOLISTHESIS, LUMBAR REGION 02/16/2018 KAYLEN, MIGDALIA [employer] Ot M51.26 OTHER INTERVERTEBRAL DISC DISPLACEMENT, 02/16/2018 KAYLEN, MIGDALIA [employer] Ot M51.34 OTHER INTERVERTEBRAL DISC DEGENERATION, 02/16/2018 KAYLEN, MIGDALIA [employer] Ot M99.73 CONN TISS AND DISC STENOS OF INTVRT FORA Procedures There is no data. Results Test [...] Status Pt. Type Provider Facility Loc./Unit Complaint [id number] 02/04/2018 08:03:00 02/04/2018 23:59:59 CLS Outpatient MIGDALIA ABDULLAHI APRN [facility] [address] RAD M54.5 LOW BACK PAIN [id number] 02/03/2018 09:08:00 02/03/2018 23:59:59 CLS Outpatient MIGDALIA ABDULLAHI [employer] [facility] [address] RAD M54.5 LOW BACK PAIN [id number] 01/17/2018 10:33:00 01/17/2018 13:07:00 DIS Emergency KEE NUNEZ MD [facility] [address] ER BACK AND STOMACH PAIN [id number] 10/07/2016 11:10:00 10/08/2016 11:40:00 DIS Outpatient CORONA ANDREWS MD [facility] [address] VENTRAL HERNIA [id number] 10/06/2016 11:02:00 10/06/2016 23:59:59 CLS Preadmit CORONA ANDREWS MD [facility] [address] RAD 1 YR REV NODULES [id number] 10/05/2016 15:37:00 10/05/2016 23:59:59 CLS Outpatient CORONA ANDREWS MD [facility] [address] PREOP ROBO VENTAL HERNIA REPAIR [id number] 10/05/2016 14:54:00 10/05/2016 23:59:59 CLS Outpatient CORONA ANDREWS MD [facility] [address] RAD HYPOTHYROIDISM [id number] 09/28/2016 10:05:00 09/28/2016 13:52:00 DIS Emergency [employer] [facility] [address] ER ABD PAIN [id number] 09/02/2015 10:45:00 09/02/2015 13:40:00 DIS Emergency [employer] [facility] [address] ER ABD/BACK PAIN [id number] 08/26/2015 09:38:00 08/26/2015 12:50:00 DIS Outpatient CORONA ANDREWS MD [facility] [address] ABD PAIN, CONSTIPATION [id number] 08/22/2015 05:40:00 08/22/2015 10:34:00 DIS Outpatient CORONA ANDREWS MD [facility] [address] PREOP ABD PAIN [id number] 08/09/2015 12:51:00 08/09/2015 15:50:00 DIS Outpatient CORONA ANDREWS MD [facility] [address] POST OP PAIN [id number] 08/02/2015 07:52:00 08/02/2015 13:24:00 DIS Outpatient CORONA ANDREWS MD [facility] [address] GALLSTONES [id number] 07/25/2015 13:13:00 07/25/2015 14:15:00 DIS Outpatient CORONA ANDREWS MD [facility] [address] PREOP GALLSTONES [id number] 07/19/2015 09:19:00 07/19/2015 23:59:59 CLS Outpatient TRAVIS TAVAREZ MD [facility] [address] CARD ABDOMINAL PAIN [id number] 06/28/2015 14:11:00 06/28/2015 23:59:59 CLS Outpatient TRAVIS TAVAREZ MD [facility] RAD ABD PAIN [id number] 06/10/2015 10:53:00 06/10/2015 12:47:00 DIS Emergency POORNIMA ACOSTA DO [facility] [address] ER CHEST PAIN/SOA [id number] 11/18/2013 12:39:00 11/18/2013 14:58:00 DIS Emergency LOVE BEAVER APRN [facility] [address] ER R RIB PAIN [id number] 12/05/2012 15:50:00 12/05/2012 23:59:59 CLS Outpatient [id number] 11/07/2012 13:16:00 11/07/2012 23:59:59 CLS Outpatient [id number] 10/17/2012 16:13:00 10/17/2012 23:59:59 CLS Outpatient [id number] 10/11/2012 16:31:00 10/11/2012 23:59:59 CLS Outpatient [id number] 09/29/2012 16:21:00 09/29/2012 23:59:59 CLS Outpatient [id number] 09/24/2012 08:51:00 09/24/2012 11:19:00 DIS Emergency BRITTANY BISHOP MD [facility] [address] ER FELL ON LEFT SHOULDER ARM [id number] 03/08/2018 07:21:00 ACT Emergency BRITTANY BISHOP MD [facility] [address] ER BACK PAIN [id number] 07/21/2012 09:58:00 Document Registration [id number] 03/20/2010 14:00:00 Document Registration [id number] 12/25/2009 12:56:00 Document Registration [id number] 12/19/2009 14:14:00 Document Registration [id number] 05/27/2017 14:05:00 05/27/2017 23:59:59 CLS Outpatient [facility]
[2018-03-08] MEDS ORDERED: OXYC-471 PO (07:44)
--- NOTE | 2018-03-08 07:44 | ED Back Pain ---
General Chief Complaint: Back Problems Stated Complaint: BACK PAIN Source of Information: Patient Exam Limitations: No Limitations History of Present Illness Date Seen by Provider: Mar 08, 2018 Time Seen by Provider: 07:26 Initial Comments Here with report of low back pain on the left and radiates into the foot. Has known sciatica. Has been trying ibuprofen, Flexeril and tramadol and that is not today. Has been following with her neurosurgeon and they are sending her out for injections. Denies any recent injury. Denies numbness between her legs or bowel or bladder incontinence. Timing/Duration: 3-4 Days Severity: Moderate Pain/Injury Location: Back Radiation: Buttocks, Feet, Lower Legs Method of Injury: Unknown Modifying Factors: Worse With Movement; Improves With Rest Associated Symptoms: muscle spasms; No fever, No weakness, No numbness in legs/ feet, No tingling in legs/feet, No sensory/motor loss; lower back pain; No loss of bladder control, No loss of bowel control Allergies and Home Medications Allergies Coded Allergies: hydrocodone (Verified Adverse Reaction, Severe, ANXIETY, 10/07/16) Home Medications Alprazolam Unknown Strength Tablet, 1 MG PO TID, (Reported) Eszopiclone 3 Mg Tablet, 3 MG PO HS, (Reported) Oxycodone HCl/Acetaminophen 1 Each Tablet, 1 EACH PO Q6H PRN for PAIN-MODERATE Prescribed by: LOVE BEAVER on 09/28/16 1316 Oxycodone HCl/Acetaminophen 1 Each Tablet, 1 EACH PO Q4H PRN for ABDOMINAL PAIN Prescribed by: CORONA ANDREWS on 10/07/16 1531 Oxycodone HCl/Acetaminophen 1 Each Tablet, 1 EACH PO Q6H PRN for PAIN Prescribed by: KEE NUNEZ on 01/17/18 1257 Prednisone 20 Mg Tab, 40 MG PO DAILY Prescribed by: KEE NUNEZ on 01/17/18 1257 Quetiapine Fumarate 400 Mg Tablet, 400 MG PO HS, (Reported) Patient Home Medication List Home Medication List Reviewed: Yes Review of Systems Constitutional: see HPI; No chills, No fever Respiratory: no symptoms reported Cardiovascular: no symptoms reported Gastrointestinal: no symptoms reported Genitourinary: no symptoms reported Musculoskeletal: see HPI, back pain, muscle pain Past Mipwwyn-Wctakf-Syapwi Hx Past Med/Social Hx: Reviewed Nursing Past Med/Soc Hx Patient Social History Alcohol Use: Past History Number of Drinks Today: AA Alcohol Beverage of Choice: Beer Recreational Drug Use: No Smoking Status: Current Everyday Smoker Type Used: Cigarettes Recent Hopitalizations: No Physical Abuse: No Sexual Abuse: No Mistreated: No Fear: No Seasonal Allergies Seasonal Allergies: No Past Medical History Surgeries: Yes (COMMON BILE DUCT-ECRP, BLADDER X3, HERNIA REPAIR WITH MESH) Gallbladder, Hysterectomy, Tubal Ligation Respiratory: No 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) Neurological: No Reproductive Disorders: No 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 Disorders: Denies [employer] History: Hysterectomy Sexually Transmitted Disease: No HIV/AIDS: No Genitourinary: No UTI-Chronic Gastrointestinal: Yes Gastroesophageal Reflux, Chronic Constipation, Irritable Bowel Musculoskeletal: Yes (ARTHRITIS D/T WEATHER) Arthritis, Chronic Back Pain, Spasms Endocrine: Yes (HAVING THYROID CHECKED 09/2016) HEENT: No Loss of Vision: Bilateral Hearing Impairment: Denies Cancer: No Psychosocial: Yes (PANIC ATTACKS) Sleep Difficulties, Anxiety, Depression Integumentary: No Blood Disorders: No Adverse Reaction/Blood Tranf: No Family Medical History Reviewed Nursing Family Hx No Pertinent Family Hx Physical Exam Vital Signs Capillary Refill : Height, Weight, BMI Height: 5'7.00" Weight: 210lbs. 0.0oz. [id number]; 32.3 BMI Method:Stated General Appearance: No Apparent Distress, WD/WN Cardiovascular: Regular Rate, Rhythm, No Murmur, Tachycardia Respiratory: Lungs Clear, Normal Breath Sounds Back: No CVA Tenderness, No Vertebral Tenderness, Muscle Spasm, Other (tender to that area of the left SI joint) Extremity: Normal Range of Motion, Non Tender, Other (positive straight leg raise left) Neurologic/Psychiatric: Alert, Oriented x3 Skin: Normal Color, Warm/Dry Progress/Results/Core Measures Progress Progress Note : Progress Note Seen and evaluated. Discussed outpatient therapy. Discharged home with return precautions. Patient verbalize understanding instructions and agreement with plan. Departure Impression Primary Impression: Lumbar radiculopathy Disposition: 01 HOME, SELF-CARE Condition: Improved Departure-Patient Inst. Decision time for Depature: 07:42 Referrals: DEYSI SHUKLA MD (PCP/Family) Primary Care Physician Patient Instructions: Radiculopathy (DC), Low Back Pain (DC) Add. Discharge Instructions: All discharge instructions reviewed with patient and/or family. Voiced understanding. Take medications as directed. Do not take tramadol at the same time as the prescribed pain medicine. This important that he follow up with your neurosurgeon for further evaluation as well as the pain management doctor to initiate injections. Return for worse pain, weakness, numbness between your legs, difficulty with walking or going to the bathroom or other concerns as needed. Scripts Prednisone (Prednisone) 20 Mg Tab 40 MG PO DAILY, #14 TAB 0 Refills Prov: BRITTANY BISHOP MD 03/08/18 Oxycodone HCl/Acetaminophen (Oxycodone-Acetaminophen 5-325) 1 Each Tablet 1 EACH PO Q6H PRN for PAIN-MODERATE MDD 6, #10 TAB 0 Refills Prov: BRITTANY BISHOP MD 03/08/18 Work/School Note: Work Release Form Date Seen in the Emergency Department: Mar 08, 2018 Return to Work: Mar 09, 2018 Restrictions: No Restrictions BRITTANY BISHOP MD Mar 08, 2018 07:44
[2018-03-08] MEDS ORDERED: PRD20T PO (07:45)
[2018-03-08 07:49] VITALS: BP 123/87
== END 2018-03-08 07:49 | disposition home or self-care (01) ==
LOC: EDUNIT# 07:19 → ER 07:21
DX: M54.16 Radiculopathy, lumbar region (principal); K21.9 Gastro-esophageal reflux disease without esophagitis; F41.0 Panic disorder [episodic paroxysmal anxiety]; F32.9 Major depressive disorder, single episode, unspecified; F17.210 Nicotine dependence, cigarettes, uncomplicated; Z98.51 Tubal ligation status; Z90.710 Acquired absence of both cervix and uterus; Z87.19 Personal history of other diseases of the digestive system; Z98.890 Other specified postprocedural states; Z87.440 Personal history of urinary (tract) infections; Z88.5 Allergy status to narcotic agent; Z79.52 Long term (current) use of systemic steroids
CPT/HCPCS: 99281

== ENCOUNTER → 2018-07-04 | Emergency (ER) | payer SELFPAY ==
[~2018-07-04] VITALS: Ht 170.2 cm; Wt 104.3 kg
[~2018-07-04] MED LIST changes: -ACHD5005 PO; -ALPR.5T PO; -ALPR1TAB2 PO; -BSP5T; -CYCL10TA9 PO; -EST1.25T; -ESZO3TAB30; -ESZO3TAB30 PO; -FLDR.1T; -HYDR-3454 PO; -HYOS0.3710 PO; +KETOROLAC 60 MG/2 ML VIAL IM ONE; -MTP25TSR; -NAPR-1071 PO; -ONDA8TAB9 PO; -ONDN4T PO; -OXYC-12 PO; -OXYC-471 PO; -OXYC1TAB16 PO; -OXYC1TAB87 PO; -PANT40TA2 PO; -POLY17PO6 PO; -PRD20T PO; -QUET400T PO; -SEROQUEL; -SUCR1TAB36 PO
--- OUTSIDE RECORDS SUMMARY | 2018-07-04 08:07 | XMS REPORT | Continuity of Care Document ---
Author Author [facility] Organization [facility] Address Unknown Phone Unavailable Allergies Active Description Code Type Severity Reaction Onset Reported/Identified Relationship to Patient Clinical Status Yes hydrocodone [id number] Drug Allergy Severe ANXIETY 10/07/2016 Medications There [...] ACUTE OR CHRONIC, 08/26/2015 JULIANA REYEZ, CORONA Torer Ot K29.70 GASTRITIS, UNSPECIFIED, WITHOUT BLEEDING 08/26/2015 [...] K63.5 POLYP OF COLON 09/02/2015 LOVE BEAVER LOADING INSPECTOR Ot K52.9 NONINFECTIVE GASTROENTERITIS AND COLITIS 09/02/2015 LOVE BEAVER LOADING INSPECTOR Ot K59.00 CONSTIPATION, UNSPECIFIED 09/02/2015 LOVE BEAVER LOADING INSPECTOR Ot R74.8 ABNORMAL LEVELS OF OTHER SERUM ENZYMES 09/03/2015 LOVE BEAVER LOADING INSPECTOR Ot K52.9 NONINFECTIVE GASTROENTERITIS AND COLITIS 09/03/2015 LOVE BEAVER LOADING INSPECTOR Ot K59.00 CONSTIPATION, UNSPECIFIED 09/03/2015 LOVE BEAVER LOADING INSPECTOR Ot R74.8 ABNORMAL LEVELS OF OTHER SERUM ENZYMES 10/08/2015 TRAVIS TAVAREZ MD Ot R10.11 RIGHT UPPER QUADRANT PAIN 10/08/2015 TRAVIS TAVAREZ MD Ot R10.9 UNSPECIFIED ABDOMINAL PAIN 10/08/2015 TRAVIS TAVAREZ MD Ot R10.11 RIGHT UPPER QUADRANT PAIN 10/08/2015 TRAVIS TAVAREZ MD Ot R10.9 UNSPECIFIED ABDOMINAL PAIN 09/28/2016 LOVE BEAVER LOADING INSPECTOR Ot F17.210 NICOTINE DEPENDENCE, CIGARETTES, UNCOMPL 09/28/2016 LOVE BEAVER LOADING INSPECTOR Ot R10.13 EPIGASTRIC PAIN 09/28/2016 LOVE BEAVER LOADING INSPECTOR Ot R14.0 ABDOMINAL DISTENSION (GASEOUS) 09/28/2016 LOVE BEAVER LOADING INSPECTOR Ot Z79.899 OTHER NURSING HOME (CURRENT) DRUG THERAPY 09/28/2016 LOVE BEAVER LOADING INSPECTOR Ot Z90.49 ACQUIRED ABSENCE OF OTHER SPECIFIED [...] MAJOR DEPRESSIVE DISORDER, SINGLE EPISOD 01/17/2018 KEE NNUEZ MD Ot F41.9 ANXIETY DISORDER, UNSPECIFIED 01/17/2018 [...] SCREENING FOR OTHER BACTER 02/07/2018 KAYLEN, MIGDALIA LOADING INSPECTOR Ot M43.16 SPONDYLOLISTHESIS, LUMBAR REGION 02/07/2018 KAYLEN, MIGDALIA LOADING INSPECTOR Ot M51.26 OTHER INTERVERTEBRAL DISC DISPLACEMENT, 02/07/2018 KAYLEN, MIGDALIA LOADING INSPECTOR Ot M51.34 OTHER INTERVERTEBRAL DISC DEGENERATION, 02/07/2018 KAYLEN, MIGDALIA LOADING INSPECTOR Ot M99.73 CONN TISS AND DISC STENOS OF INTVRT FORA 02/07/2018 KAYLEN, MIGDALIA LOADING INSPECTOR Ot M53.3 SACROCOCCYGEAL DISORDERS, NOT ELSEWHERE 02/07/2018 KAYLEN, MIGDALIA LOADING INSPECTOR Ot M54.5 LOW BACK PAIN 02/16/2018 KAYLEN, MIGDALIA LOADING INSPECTOR Ot M43.16 SPONDYLOLISTHESIS, LUMBAR REGION 02/16/2018 KAYLEN, MIGDALIA LOADING INSPECTOR Ot M51.26 OTHER INTERVERTEBRAL DISC DISPLACEMENT, 02/16/2018 KAYLEN, MIGDALIA LOADING INSPECTOR Ot M51.34 OTHER INTERVERTEBRAL DISC DEGENERATION, 02/16/2018 KAYLEN, MIGDALIA LOADING INSPECTOR Ot M99.73 CONN TISS AND DISC STENOS OF INTVRT FORA 03/08/2018 BRITTANY BISHOP MD Ot F17.210 NICOTINE DEPENDENCE, CIGARETTES, UNCOMPL 03/08/2018 BRITTANY BISHOP MD Ot F32.9 MAJOR DEPRESSIVE DISORDER, SINGLE EPISOD 03/08/2018 BRITTANY BISHOP MD Ot F41.0 PANIC DISORDER [EPISODIC PAROXYSMAL ANXI 03/08/2018 BRITTANY BISHOP MD Ot K21.9 GASTRO-ESOPHAGEAL REFLUX DISEASE WITHOUT 03/08/2018 BRITTANY BISHOP MD Ot M54.16 RADICULOPATHY, LUMBAR REGION 03/08/2018 BRITTANY BISHOP MD Ot M54.5 LOW BACK PAIN 03/08/2018 BRITTANY BISHOP MD Ot Z79.52 NURSING HOME (CURRENT) USE OF SYSTEMIC STER 03/08/2018 BRITTANY BISHOP MD Ot Z87.19 PERSONAL HISTORY OF OTHER DISEASES OF 03/08/2018 BRITTANY BISHOP MD Ot Z87.440 PERSONAL HISTORY OF URINARY (TRACT) INFE 03/08/2018 BRITTANY BISHOP MD Ot Z88.5 ALLERGY STATUS TO NARCOTIC AGENT STATUS 03/08/2018 BRITTANY BISHOP MD Ot Z90.710 ACQUIRED ABSENCE OF BOTH CERVIX AND UTER 03/08/2018 BRITTANY BISHOP MD Ot Z98.51 TUBAL LIGATION STATUS 03/08/2018 BRITTANY BISHOP MD Ot Z98.890 OTHER SPECIFIED POSTPROCEDURAL STATES 03/10/2018 BRITTANY BISHOP MD Ot F17.210 NICOTINE DEPENDENCE, CIGARETTES, UNCOMPL 03/10/2018 BRITTANY BISHOP MD, Ot F32.9 MAJOR DEPRESSIVE DISORDER, SINGLE EPISOD 03/10/2018 BRITTANY BISHOP MD Ot F41.0 PANIC DISORDER [EPISODIC PAROXYSMAL ANXI 03/10/2018 BRITTANY BISHOP MD Ot K21.9 GASTRO-ESOPHAGEAL REFLUX DISEASE WITHOUT 03/10/2018 BRITTANY BISHOP MD Ot M54.16 RADICULOPATHY, LUMBAR REGION 03/10/2018 BRITTANY BISHOP MD Ot M54.5 LOW BACK PAIN 03/10/2018 BRITTANY BISHOP MD Ot Z79.52 CHARACTER IMPERSONATOR (CURRENT) USE OF SYSTEMIC STER 03/10/2018 BRITTANY BISHOP MD Ot Z87.19 PERSONAL HISTORY OF OTHER DISEASES OF 03/10/2018 BRITTANY BISHOP MD Ot Z87.440 PERSONAL HISTORY OF URINARY (TRACT) INFE 03/10/2018 BRITTANY BISHOP MD Ot Z88.5 ALLERGY STATUS TO NARCOTIC AGENT STATUS 03/10/2018 BRITTANY BISHOP MD Ot Z90.710 ACQUIRED ABSENCE OF BOTH CERVIX AND UTER 03/10/2018 BRITTANY BISHOP MD Ot Z98.51 TUBAL LIGATION STATUS 03/10/2018 BRITTANY BISHOP MD Ot Z98.890 OTHER SPECIFIED POSTPROCEDURAL STATES 06/07/2018 TRAVIS TAVAREZ MD Ot R10.11 RIGHT UPPER QUADRANT PAIN 06/07/2018 TRAVIS TAVAREZ MD Ot R10.9 UNSPECIFIED ABDOMINAL PAIN 06/07/2018 JULIANA REYEZ, CORONA Torre Ot E03.9 HYPOTHYROIDISM, UNSPECIFIED 06/07/2018 JULIANA REYEZ, CORONA Torre Ot K43.9 VENTRAL HERNIA WITHOUT OBSTRUCTION OR GA 06/07/2018 JULIANA REYEZ, CORONA Torre Ot Z01.818 ENCOUNTER FOR OTHER PREPROCEDURAL EXAMIN 06/07/2018 JULIANA REYEZ, CORONA Torre Ot Z11.2 ENCOUNTER FOR SCREENING FOR OTHER BACTER 06/07/2018 MIGDALIA ABDULLAHI APRN Ot M43.16 SPONDYLOLISTHESIS, LUMBAR REGION 06/07/2018 MIGDALIA ABDULLAHI APRN Ot M51.26 OTHER INTERVERTEBRAL DISC DISPLACEMENT, 06/07/2018 MIGDALIA ABDULLAHI APRN Ot M51.34 OTHER INTERVERTEBRAL DISC DEGENERATION, 06/07/2018 MIGDALIA ABDULLAHI APRN Ot M99.73 CONN TISS AND DISC STENOS OF INTVRT FORA 06/07/2018 MIGDALIA ABDULLAHI APRN Ot M53.3 SACROCOCCYGEAL DISORDERS, NOT ELSEWHERE 06/07/2018 MIGDALIA ABDULLAHI APRN Ot M54.5 LOW BACK PAIN Procedures There is no data. Results Test [...] Status Pt. Type Provider Facility Loc./Unit Complaint [id number] 03/08/2018 07:21:00 03/08/2018 07:49:00 DIS Emergency EDNA REYEZ, BRITTANY Delgado [facility] ER BACK PAIN [id number] 02/04/2018 08:03:00 02/04/2018 23:59:59 CLS Outpatient MIGDALIA ABDULLAHI APRN [facility] RAD M54.5 LOW BACK PAIN [id number] 02/03/2018 09:08:00 02/03/2018 23:59:59 CLS Outpatient MIGDALIA ABDULLAHI APRN [facility] RAD M54.5 LOW BACK PAIN [id number] 01/17/2018 10:33:00 01/17/2018 13:07:00 DIS Emergency MAYRA REYEZ, KEE Hudson [facility] ER BACK AND STOMACH PAIN [id number] 10/07/2016 11:10:00 10/08/2016 11:40:00 DIS Outpatient CORONA ANDREWS MD [facility] VENTRAL HERNIA [id number] 10/06/2016 11:02:00 10/06/2016 23:59:59 CLS Preadmit CORONA ANDREWS MD [facility] RAD 1 YR REV NODULES [id number] 10/05/2016 15:37:00 10/05/2016 23:59:59 CLS Outpatient CORONA ANDREWS MD [facility] PREOP ROBO VENTAL HERNIA REPAIR [id number] 10/05/2016 14:54:00 10/05/2016 23:59:59 CLS Outpatient CORONA ANDREWS MD [facility] RAD HYPOTHYROIDISM [id number] 09/28/2016 10:05:00 09/28/2016 13:52:00 DIS Emergency LOVE BEAVER LOADING INSPECTOR [facility] ER ABD PAIN [id number] 09/02/2015 10:45:00 09/02/2015 13:40:00 DIS Emergency LOVE BEAVER LOADING INSPECTOR [facility] ER ABD/BACK PAIN [id number] 08/26/2015 09:38:00 08/26/2015 12:50:00 DIS Outpatient CORONA ANDREWS MD [facility] ABD PAIN, CONSTIPATION [id number] 08/22/2015 05:40:00 08/22/2015 10:34:00 DIS Outpatient CORONA ANDREWS MD [facility] PREOP ABD PAIN [id number] 08/09/2015 12:51:00 08/09/2015 15:50:00 DIS Outpatient CORONA ANDREWS MD [facility] POST OP PAIN [id number] 08/02/2015 07:52:00 08/02/2015 13:24:00 DIS Outpatient CORONA ANDREWS MD [facility] SDC GALLSTONES [id number] 07/25/2015 13:13:00 07/25/2015 14:15:00 DIS Outpatient CORONA ANDREWS MD [facility] PREOP GALLSTONES [id number] 07/19/2015 09:19:00 07/19/2015 23:59:59 CLS Outpatient TRAVIS TAVAREZ MD [facility] CARD ABDOMINAL PAIN [id number] 06/28/2015 14:11:00 06/28/2015 23:59:59 CLS Outpatient TRAVIS TAVAREZ MD [facility] RAD ABD PAIN [id number] 06/10/2015 10:53:00 06/10/2015 12:47:00 DIS Emergency POORNIMA ACOSTA DO [facility] ER CHEST PAIN/SOA [id number] 11/18/2013 12:39:00 11/18/2013 14:58:00 DIS Emergency LOVE BEAVER APRN [facility] ER R RIB PAIN [id number] 12/05/2012 15:50:00 12/05/2012 23:59:59 CLS Outpatient [id number] 11/07/2012 13:16:00 11/07/2012 23:59:59 CLS Outpatient [id number] 10/17/2012 16:13:00 10/17/2012 23:59:59 CLS Outpatient [id number] 10/11/2012 16:31:00 10/11/2012 23:59:59 CLS Outpatient [id number] 09/29/2012 16:21:00 09/29/2012 23:59:59 CLS Outpatient [id number] 09/24/2012 08:51:00 09/24/2012 11:19:00 DIS Emergency BRITTANY BISHOP MD [facility] ER FELL ON LEFT SHOULDER ARM [id number] 07/21/2012 09:58:00 Document Registration [id number] 03/20/2010 14:00:00 Document Registration [id number] 12/25/2009 12:56:00 Document Registration [id number] 12/19/2009 14:14:00 Document Registration [id number] 05/27/2017 14:05:00 05/27/2017 23:59:59 CLS Outpatient [facility]
--- NOTE | 2018-07-04 08:37 | ED EENT ---
History of Present Illness General Chief Complaint: Cough/Cold/Flu Symptoms Stated Complaint: CONGESTION,BACK PAIN Nursing Triage Note: PT CO OF CONGESTION COUGH AND R EYE REDDEND AND SWOLLEN FOR APPROX 5 DAYS. DENIES FEVER Source: patient, family (mom) Exam Limitations: no limitations History of Present Illness Date Seen by Provider: Jul 04, 2018 Time Seen by Provider: 08:16 Initial Comments Patient resists ER by private conveyance with chief complaint of some chronic back pain is been exacerbated over the last several days. She's also been having for the last 2 days some swelling and redness of her left eye with some mattering and discharge worse in the morning. no fevers or chills. No body aches or cough. She had her flu shot this year. He is seeing a neurosurgeon and a painter and body mechanic apprentice to get injections in her back steroids about March 2018. She wants something for her back pain. She is not using Tylenol or Motrin. She has hydrocodone and tramadol are not enough. Dr. Lo her primary care doctor gave her hydrocodone last but she didn't feel it worked very well. Allergies and Home Medications Allergies Coded Allergies: hydrocodone (Verified Adverse Reaction, Severe, ANXIETY, 10/07/16) Home Medications Alprazolam Unknown Strength Tablet, 1 MG PO TID, (Reported) Eszopiclone 3 Mg Tablet, 3 MG PO HS, (Reported) Oxycodone HCl/Acetaminophen 1 Each Tablet, 1 EACH PO Q6H PRN for PAIN-MODERATE Prescribed by: LOVE BEAVER on 09/28/16 1316 Oxycodone HCl/Acetaminophen 1 Each Tablet, 1 EACH PO Q4H PRN for ABDOMINAL PAIN Prescribed by: CORONA ANDREWS on 10/07/16 1531 Oxycodone HCl/Acetaminophen 1 Each Tablet, 1 EACH PO Q6H PRN for PAIN Prescribed by: KEE NUNEZ on 01/17/18 1257 Oxycodone HCl/Acetaminophen 1 Each Tablet, 1 EACH PO Q6H PRN for PAIN-MODERATE Prescribed by: BRITTANY BISHOP on 03/08/18 0744 Prednisone 20 Mg Tab, 40 MG PO DAILY Prescribed by: KEE NUNEZ on 01/17/18 1257 Prednisone 20 Mg Tab, 40 MG PO DAILY Prescribed by: BRITTANY BISHOP on 03/08/18 0745 Quetiapine Fumarate 400 Mg Tablet, 400 MG PO HS, (Reported) Patient Home Medication List Home Medication List Reviewed: Yes Review of Systems Review of Systems Constitutional: No chills, No fever, No malaise Eyes: Denies Blindness, Denies Blurred Vision; Drainage; Denies Foreign Body Sensation; Inflammation, Pain; Denies Photophobia Ears: Denies Dizziness, Denies Pain Nose: denies clots; congestion; denies bloody discharge, denies clear discharge Mouth: denies pain, denies swelling Gastrointestinal: No abdominal pain, No constipation, No diarrhea Musculoskeletal: see HPI, back pain Past Yiddcbg-Xyglcc-Bthhnx Hx Patient Social History Alcohol Use: Denies Use Number of Drinks Today: AA Alcohol Beverage of Choice: Beer Recreational Drug Use: No Smoking Status: Current Everyday Smoker Type Used: Cigarettes Recent Foreign Travel: No Contact w/Someone Who Travel: No Recent Infectious Disease Expo: No Recent Hopitalizations: No Physical Abuse: No Sexual Abuse: No Mistreated: No Seasonal Allergies Seasonal Allergies: No Past Medical History Surgeries: Yes (COMMON BILE DUCT-ECRP, BLADDER X3, HERNIA REPAIR WITH MESH) Gallbladder, Hysterectomy, Tubal Ligation Respiratory: No 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) Neurological: No Reproductive Disorders: No 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 Disorders: Denies LEVELER History: Hysterectomy Sexually Transmitted Disease: No HIV/AIDS: No Genitourinary: No UTI-Chronic Gastrointestinal: Yes Gastroesophageal Reflux, Chronic Constipation, Irritable Bowel Musculoskeletal: Yes (ARTHRITIS D/T WEATHER) Arthritis, Chronic Back Pain, Spasms Endocrine: Yes (HAVING THYROID CHECKED 09/2016) HEENT: No Loss of Vision: Bilateral Hearing Impairment: Denies Cancer: No Psychosocial: Yes (PANIC ATTACKS) Sleep Difficulties, Anxiety, Depression Integumentary: No Blood Disorders: No Adverse Reaction/Blood Tranf: No Family Medical History No Pertinent Family Hx Physical Exam Vital Signs Vital Signs - First Documented 07/04/18 08:15 Temp 97.8 Pulse 102 Resp 18 B/P (MAP) 127/71 (89) Pulse Ox 95 Height, Weight, BMI Height: 5'7.00" Weight: 230lbs. 0.0oz. [id number]; 32.3 BMI Method:Stated General Appearance: WD/WN, mild distress Eyes: right eye normal inspection; left eye conjunctival inflammation, left eye lid injury; bilateral eye PERRL, bilateral eye EOMI Ears: bilateral ear auricle normal, bilateral ear canal normal, bilateral ear TM normal Nose: normal inspection; No discharge Mouth/Throat: normal mouth inspection, pharynx normal Neck: non-tender, full range of motion, supple, normal inspection Cardiovascular: normal peripheral pulses, regular rate, rhythm, no edema Neurologic/Psychiatric: alert, normal mood/affect, oriented x 3 Skin: normal color, warm/dry L5/S1 facet tenderness right more than left. Progress/Results/Core Measures Results/Orders My Orders Orders - KEE NUNEZ Ketorolac Injection (Toradol Injection) (07/04/18 08:30) Vital Signs/I&O 07/04/18 08:15 Temp 97.8 Pulse 102 Resp 18 B/P (MAP) 127/71 (89) Pulse Ox 95 Blood Pressure Mean: 89 Progress Progress Note : Time: 08:34 Progress Note Looks like she has an active bacterial conjunctivitis so now some time to do a steroid shot in her back. We discussed she should follow-up with her pain management doctor or neurosurgery. We can send her home some Percocet for her back pain and antibiotics for her eye. We'll give her some Toradol IM now. MRI January 2018: There are small central protrusion of the L4-L5 disc without significant stenosis. Grade 2 anterolisthesis of L5 on S1 similar to previous CT examination. Moderately severe bilateral neural foraminal stenosis without significant spinal stenosis identified. Departure Impression Primary Impression: Bacterial conjunctivitis of left eye Additional Impression: Lumbago without sciatica Qualified Codes: M54.5 - Low back pain; G89.29 - Other chronic pain Disposition: 01 HOME, SELF-CARE Condition: Stable Departure-Patient Inst. Decision time for Depature: 08:35 Referrals: DEYSI LO MD (PCP/Family) Primary Care Physician Patient Instructions: Conjunctivitis (Pinkeye) (DC) Add. Discharge Instructions: Use warm compresses on the left eye starting from the inner canthus and sweeping away towards the side of your face. Use Tylenol 1000 mg every 8 hours in addition to Naprosyn 2 capsules twice a day for your back pain. Finally if you have breakthrough pain and cannot be functional with then you should take the Percocet 1 tablet every 6 hours as needed. Follow-up with primary care or your pain management doctor. manager group a back brace and use it every day that helps. Use heating pads for your back. All discharge instructions reviewed with patient and/or family. Voiced understanding. Scripts Ofloxacin (Ofloxacin) 5 Ml Drops 5 DROPS OP Q6H for 7 Days, #5 ML 0 Refills Prov: KEE NUNEZ 07/04/18 Oxycodone HCl/Acetaminophen (Oxycodone-Acetaminophen 5-325) 1 Each Tablet 1 EACH PO Q6H PRN for PAIN-MODERATE MDD 6, #14 TAB 0 Refills Prov: KEE NUNEZ 07/04/18 KEE NUNEZ Jul 04, 2018 08:37
[2018-07-04 09:03] VITALS: BP 135/96
== END | disposition home or self-care (01) ==
LOC: EDUNIT# 08:00 → ER 08:02
DX: H10.89 Other conjunctivitis (principal); B96.89 Other specified bacterial agents as the cause of diseases classified elsewhere; M54.5 Low back pain; K21.9 Gastro-esophageal reflux disease without esophagitis; K58.9 Irritable bowel syndrome, unspecified; F41.0 Panic disorder [episodic paroxysmal anxiety]; F32.9 Major depressive disorder, single episode, unspecified; F17.210 Nicotine dependence, cigarettes, uncomplicated; Z88.5 Allergy status to narcotic agent; Z79.52 Long term (current) use of systemic steroids; Z87.19 Personal history of other diseases of the digestive system; Z87.440 Personal history of urinary (tract) infections; Z98.890 Other specified postprocedural states; Z90.710 Acquired absence of both cervix and uterus; Z98.51 Tubal ligation status
CPT/HCPCS: 96372; 99284

== ENCOUNTER 2020-11-12 20:28 | Emergency (ER) | payer SELFPAY ==
[~2020-11-12] VITALS: Ht 175 cm; Wt 79.0 kg
[~2020-11-12 20:28] MED LIST changes: +ACHD5005 PO; +ALPR.5T PO; +ALPR1TAB2 PO; +BSP5T; +CYCL10TA9 PO; +EST1.25T; +ESZO3TAB30; +ESZO3TAB30 PO; +FLDR.1T; +HYDR-3455 PO; +HYOS0.3710 PO; -KETOROLAC 60 MG/2 ML VIAL IM ONE; +MTP25TSR; +NAPR-1071 PO; +OFLO5DRO3 OP; +ONDA8TAB9 PO; +ONDN4T PO; +OXYC-12 PO; +OXYC1TAB11 PO; +OXYC1TAB16 PO; +OXYC1TAB87 PO; +PANT40TA2 PO; +POLY17PO6 PO; +PRD20T PO; +QUET400T PO; +SEROQUEL; +SUCR1TAB36 PO
[2020-11-12 20:49] LABS: BILIRUBIN,URINE NEGATIVE (NEGATIVE); CLARITY,URINE CLEAR; COLOR,URINE YELLOW; GLUCOSE, URINE (UA) NEGATIVE (NEGATIVE); KETONES,URINE NEGATIVE (NEGATIVE); LEUKOCYTE ESTERASE ,URINE NEGATIVE (NEGATIVE); NITRITE,URINE NEGATIVE (NEGATIVE); PROTEIN,URINE NEGATIVE (NEGATIVE)
[2020-11-12 20:55] LABS: BACTERIA,URINE NEGATIVE /HPF
--- NOTE | 2020-11-12 21:15 | ED General ---
General Chief Complaint: General Problems/Pain Stated Complaint: OVERDOSE History of Present Illness Date Seen by Provider: Nov 12, 2020 Time Seen by Provider: 20:45 Initial Comments 50-year-old female presents via EMS after dispute with family members and statements about wanting to harm herself. When patient presents to the exam room she denies any thoughts of harming herself or others. She reports drinking beer in her pool for most the afternoon, she thinks she had approximately 6 beers. She had a verbal argument with her sons and made a comment about self- harm. The police were then called by her sons and her sister reporting that she would kill herself. She does have a history of depression and is treated with medications for this by Dr. Lo in [place]. No history of self harm. She reports that her was killed in an MVA many years ago and she has been a single mother, she has disagreements with her sons at times and will say things that trigger them. However she didn't say it to actually have any intention to harm herself. 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 No family is present in the ED, she reports they were drinking ETOH and could not drive here. Timing/Duration: 1-3 Hours Associated Systoms: Denies Symptoms Allergies and Home Medications Allergies Coded Allergies: hydrocodone (Verified Adverse Reaction, Severe, ANXIETY, 10/07/16) Home Medications Alprazolam Unknown Strength Tablet, 1 MG PO TID, (Reported) Eszopiclone 3 Mg Tablet, 3 MG PO HS, (Reported) Ofloxacin 5 Ml Drops, 5 DROPS OP Q6H Prescribed by: KEE NUNEZ on 07/04/18 0840 Oxycodone HCl/Acetaminophen 1 Each Tablet, 1 EACH PO Q6H PRN for PAIN-MODERATE Prescribed by: LOVE BEAVER on 09/28/16 1316 Oxycodone HCl/Acetaminophen 1 Each Tablet, 1 EACH PO Q4H PRN for ABDOMINAL PAIN Prescribed by: CORONA ANDREWS on 10/07/16 1531 Oxycodone HCl/Acetaminophen 1 Each Tablet, 1 EACH PO Q6H PRN for PAIN Prescribed by: KEE NUNEZ on 01/17/18 1257 Oxycodone HCl/Acetaminophen 1 Each Tablet, 1 EACH PO Q6H PRN for PAIN-MODERATE Prescribed by: BRITTANY BISHOP on 03/08/18 0744 Oxycodone HCl/Acetaminophen 1 Each Tablet, 1 EACH PO Q6H PRN for PAIN-MODERATE Prescribed by: KEE NUNEZ on 07/04/18 0840 Prednisone 20 Mg Tab, 40 MG PO DAILY Prescribed by: KEE NUNEZ on 01/17/18 1257 Prednisone 20 Mg Tab, 40 MG PO DAILY Prescribed by: BRITTANY BISHOP on 03/08/18 0745 Quetiapine Fumarate 400 Mg Tablet, 400 MG PO HS, (Reported) Patient Home Medication List Home Medication List Reviewed: Yes Review of Systems Review of Systems Constitutional: no symptoms reported, see HPI Psychiatric/Neurological: See HPI, Depressed All Other Systems Reviewed Negative Unless Noted: Yes Past Ngqbyos-Yomkxe-Cphrhp Hx Past Med/Social Hx: Reviewed Nursing Past Med/Soc Hx Patient Social History Alcohol Beverage of Choice: Beer Type Used: Cigarettes Recent Hopitalizations: No Seasonal Allergies Seasonal Allergies: No Past Medical History Surgeries: Yes (COMMON BILE DUCT-ECRP, BLADDER X3, HERNIA REPAIR WITH MESH) Gallbladder, Hysterectomy, Tubal Ligation Respiratory: No 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) Neurological: No Reproductive Disorders: No 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 Disorders: Denies 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 Sexually Transmitted Disease: No HIV/AIDS: No Genitourinary: No UTI-Chronic Gastrointestinal: Yes Gastroesophageal Reflux, Chronic Constipation, Irritable Bowel Musculoskeletal: Yes (ARTHRITIS D/T WEATHER) Arthritis, Chronic Back Pain, Spasms Endocrine: Yes (HAVING THYROID CHECKED 09/2016) HEENT: No Loss of Vision: Bilateral Hearing Impairment: Denies Cancer: No Psychosocial: Yes (PANIC ATTACKS) Sleep Difficulties, Anxiety, Depression Integumentary: No Blood Disorders: No Adverse Reaction/Blood Tranf: No Family Medical History No Pertinent Family Hx Physical Exam Vital Signs Vital Signs - First Documented 11/12/20 20:45 Temp 36.1 Pulse 102 Resp 18 B/P (MAP) 105/75 (85) Pulse Ox 96 O2 Delivery Room Air Capillary Refill : Height, Weight, BMI Height: 5'7.00" Weight: 230lbs. 0.0oz. [id number]; 32.3 BMI Method:Stated General Appearance: No Apparent Distress, WD/WN Eyes: Bilateral Eye Normal Inspection, Bilateral Eye PERRL, Bilateral Eye EOMI HEENT: PERRL/EOMI, TMs Normal, Normal ENT Inspection, Pharynx Normal Neck: Full Range of Motion, Normal Inspection, Non Tender, Supple Respiratory: Chest Non Tender, Lungs Clear, Normal Breath Sounds Cardiovascular: Regular Rate, Rhythm, No Edema, No Murmur, Normal Peripheral Pulses Gastrointestinal: Normal Bowel Sounds, Non Tender, Soft Extremity: Normal Capillary Refill, Normal Inspection, Normal Range of Motion, No Pedal Edema Neurologic/Psychiatric: Alert, Oriented x3, No Motor/Sensory Deficits, Normal Mood/Affect Skin: Normal Color, Warm/Dry Progress/Results/Core Measures Suspected Sepsis SIRS Temperature: Pulse: Respiratory Rate: Blood Pressure / Mean: Results/Orders Lab Results Laboratory Tests Test 11/12/20 20:39 Range/Units Urine Color YELLOW Urine Clarity CLEAR Urine pH 6.0 5-9 Urine Specific [place] <=1.005 1.016-1.022 Urine Protein NEGATIVE NEGATIVE Urine Glucose (UA) NEGATIVE NEGATIVE Urine Ketones NEGATIVE NEGATIVE Urine Nitrite NEGATIVE NEGATIVE Urine Bilirubin NEGATIVE NEGATIVE Urine Urobilinogen 0.2 < = 1.0 MG/DL Urine Leukocyte Esterase NEGATIVE NEGATIVE Urine RBC (Auto) NEGATIVE NEGATIVE Urine RBC NONE /HPF Urine WBC NONE /HPF Urine Squamous Epithelial Cells NONE /HPF Urine Renal Epithelial Cells NONE /HPF Urine Crystals NONE /LPF Urine Bacteria NEGATIVE /HPF Urine Casts NONE /LPF Urine Mucus NEGATIVE /LPF Urine Culture Indicated NO Urine Opiates Screen NEGATIVE NEGATIVE Urine Oxycodone Screen NEGATIVE NEGATIVE Urine Methadone Screen NEGATIVE NEGATIVE Urine Propoxyphene Screen NEGATIVE NEGATIVE Urine Barbiturates Screen NEGATIVE NEGATIVE Ur Tricyclic Antidepressants Screen NEGATIVE NEGATIVE Urine Phencyclidine Screen NEGATIVE NEGATIVE Urine Amphetamines Screen NEGATIVE NEGATIVE Urine Methamphetamines Screen NEGATIVE NEGATIVE Urine Benzodiazepines Screen NEGATIVE NEGATIVE Urine Cocaine Screen NEGATIVE NEGATIVE Urine Cannabinoids Screen NEGATIVE NEGATIVE Vital Signs/I&O 11/12/20 11/12/20 20:45 21:56 Temp 36.1 Pulse 102 87 Resp 18 18 B/P (MAP) 105/75 (85) 113/83 (85) Pulse Ox 96 99 O2 Delivery Room Air Room Air Capillary Refill : Progress Note : Time: 20:45 Progress Note Patient seen and evaluated. Initial labs were ordered by Dr. Marie. Patient drinking water. 2114 Spoke to screener at [phone], since patient is denying any thoughts to harm herself or others, no MH screening is necessary. Unless she is requesting voluntary placement or other MH complaints, no further MH services indicated at this time. 2134 Patient requesting discharge to home, she has called her son and he agreed to come get her. RN realized that blood work was not drawn, discussed option to complete lab work, patient declines having lab work completed and no indication at this time. 2149 Her son's girlfriend is present, reports she will drive her home and her son is at the house. They will take her medications, other than what she would need for tonight. She has no guns in her home. They will check on her tomorrow. Patient called her son on phone, he verbalized concerns about her safety. She explained to him that she made the comment while intoxicated but didn't have any truth in plans to harm herself. Discharge instructions and return precautions discussed with the patient. She is agreeable. Departure Impression Primary Impression: Depressed Qualified Codes: F32.9 - Major depressive disorder, single episode, unspecified Additional Impression: Alcohol intoxication Qualified Codes: F10.920 - Alcohol use, unspecified with intoxication, uncomplicated Disposition: HOME, SELF-CARE Condition: Improved Departure-Patient Inst. Decision time for Depature: 21:45 Referrals: DEYSI LO MD (PCP/Family) Primary Care Physician Patient Instructions: Depression, Adult (DC) Add. Discharge Instructions: Limit alcohol intake while taking psychiatric and pain medications. You can stay with family tonight, or they can take your medications with them and only leave the medication she would need overnight and first thing tomorrow morning. Follow-up with your primary care provider tomorrow and seek counseling as needed. Call [phone] or 911, If you feel any thoughts of harming yourself or others. Return to the emergency department for new, urgent healthcare needs. All discharge instructions reviewed with patient and/or family. Voiced understanding. MATTHIEU HENSLEY Nov 12, 2020 21:15
[2020-11-12 21:22] LABS: AMPHETAMINE SCREEN, URINE NEGATIVE (NEGATIVE); BARBITURATE SCREEN URINE NEGATIVE (NEGATIVE); BENZODIAZEPINES SCREEN URINE NEGATIVE (NEGATIVE); CANNABINOID SCREEN, URINE NEGATIVE (NEGATIVE); COCAINE SCREEN URINE NEGATIVE (NEGATIVE); METHADONE STAT NEGATIVE (NEGATIVE); METHAMPHETAMINE SCREEN URINE S NEGATIVE (NEGATIVE); OPIATE SCREEN URINE NEGATIVE (NEGATIVE); OXYCODONE STAT NEGATIVE (NEGATIVE); PROPOXYPHENE STAT NEGATIVE (NEGATIVE); TRICYCLIC ANTIDEPRESSANTS SCRE NEGATIVE (NEGATIVE)
[2020-11-12 21:56] VITALS: BP 113/83
== END 2020-11-12 21:56 | disposition home or self-care (01) ==
LOC: ER 20:30
DX: F32.9 Major depressive disorder, single episode, unspecified (principal); F10.929 Alcohol use, unspecified with intoxication, unspecified; G89.29 Other chronic pain; M54.9 Dorsalgia, unspecified; G47.9 Sleep disorder, unspecified; F41.0 Panic disorder [episodic paroxysmal anxiety]; Z79.891 Long term (current) use of opiate analgesic; Z79.899 Other long term (current) drug therapy
CPT/HCPCS: 80306; 81000; 99281

== ENCOUNTER 2021-07-30 09:09 | Emergency (ER) | payer SELFPAY ==
[~2021-07-30] VITALS: Ht 170.2 cm; Wt 90.7 kg
[~2021-07-30 09:09] MED LIST changes: +CYCL10TA25 PO; -CYCL10TA9 PO
[2021-07-30] MEDS ORDERED: ADENOSINE 6 MG/2 ML (ADENOCARD) VIAL IV ONE ×2 (09:17→10:00)
[2021-07-30 09:38] LABS: BASOPHILS # (AUTO) 0.1 10^3/uL (0.0-0.1); BASOPHILS % (AUTO) 1 % (0-10); HEMATOCRIT 43 % (35-52); HEMOGLOBIN 14.5 g/dL (11.5-16.0); MEAN CORPUSCULAR HEMOGLOBIN 33 pg (25-34); MEAN CORPUSCULAR HGB CONC 34 g/dL (32-36); MEAN CORPUSCULAR VOLUME 98 fL (80-99)
[2021-07-30 09:40] LABS: EOSINOPHILS # (AUTO) 0.1 10^3/uL (0.0-0.3); EOSINOPHILS % (AUTO) 2 % (0-10); LYMPHOCYTES # (AUTO) 2.9 10^3/uL (1.0-4.0); LYMPHOCYTES % (AUTO) 39 % (12-44); MEAN PLATELET VOLUME 11.1 fL (9.0-12.2); MONOCYTES # (AUTO) 0.6 10^3/uL (0.0-1.0); MONOCYTES % (AUTO) 7 % (0-12); NEUTROPHILS # (AUTO) 3.8 10^3/uL (1.8-7.8); NEUTROPHILS % (AUTO) 51 % (42-75); PLATELET COUNT 270 10^3/uL (130-400); WHITE BLOOD COUNT 7.4 10^3/uL (4.3-11.0)
[2021-07-30 09:56] LABS: BILIRUBIN,TOTAL 0.3 MG/DL (0.1-1.0)
--- NOTE | 2021-07-30 10:04 | ED Cardiac General ---
History of Present Illness General Chief Complaint: Cardiac/General Problems Stated Complaint: RAPID HEART RATE 200 Nursing Triage Note: PT TO RM 5 W C/O DIZZINESS, TINGLING EXTREMITIES, AND RAPID HR SX APPROX 0700 THIS AM. PT DENIES CP, REPORTS SHE WAS AT WORK WHEN SX BEGAN. PT A&OX4. Source: patient Exam Limitations: no limitations History of Present Illness Date Seen by Provider: Jul 30, 2021 Time Seen by Provider: 09:14 Initial Comments This 51-year-old woman presents to the emergency room with complaints of tachycardia, dizziness, and tingling in her extremities that started around 0700 this morning. She reports a history of SVT, neurocardiogenic syncope, and vasovagal syncope. She has a narrow complex tachycardia in the 180s on the monitor during assessment. Allergies and Home Medications Allergies Coded Allergies: hydrocodone (Verified Adverse Reaction, Severe, ANXIETY, 10/07/16) Patient Home Medication List Home Medication List Reviewed: Yes Alprazolam (Xanax) Unknown Strength Tablet, 1 MG PO TID, (Reported) Entered as Reported by: CHACHO SILVER on 07/25/15 1403 Eszopiclone (Lunesta) 3 Mg Tablet, 3 MG PO HS, (Reported) Entered as Reported by: MARY JACOBSON on 09/08/09 1800 Ofloxacin (Ofloxacin) 5 Ml Drops, 5 DROPS OP Q6H Prescribed by: KEE NUNEZ on 07/04/18 0840 Oxycodone HCl/Acetaminophen (Oxycodone-Acetaminophen 5-325) 1 Each Tablet, 1 EACH PO Q6H PRN for PAIN-MODERATE Prescribed by: LOVE BEAVER on 09/28/16 1316 Oxycodone HCl/Acetaminophen (Percocet 5-325 mg Tablet) 1 Each Tablet, 1 EACH PO Q4H PRN for ABDOMINAL PAIN Prescribed by: CORONA ANDREWS on 10/07/16 1531 Oxycodone HCl/Acetaminophen (Oxycodone-Acetaminophen 5-325) 1 Each Tablet, 1 EACH PO Q6H PRN for PAIN Prescribed by: KEE NUNEZ on 01/17/18 1257 Oxycodone HCl/Acetaminophen (Oxycodone-Acetaminophen 5-325) 1 Each Tablet, 1 EACH PO Q6H PRN for PAIN-MODERATE Prescribed by: BRITTANY BISHOP on 03/08/18 0744 Oxycodone HCl/Acetaminophen (Oxycodone-Acetaminophen 5-325) 1 Each Tablet, 1 EA CH PO Q6H PRN for PAIN-MODERATE Prescribed by: KEE NUNEZ on 07/04/18 0840 Prednisone (Prednisone) 20 Mg Tab, 40 MG PO DAILY Prescribed by: KEE NUNEZ on 01/17/18 1257 Prednisone (Prednisone) 20 Mg Tab, 40 MG PO DAILY Prescribed by: BRITTANY BISHOP on 03/08/18 0745 Propranolol HCl (Propranolol HCl) 40 Mg Tablet, 40 MG PO BID Prescribed by: JOSH SCHWARTZ on 07/30/21 1136 Quetiapine Fumarate (Seroquel) 400 Mg Tablet, 400 MG PO HS, (Reported) Entered as Reported by: CHACHO SILVER on 07/25/15 1403 Review of Systems Review of Systems Constitutional: no symptoms reported EENTM: No Symptoms Reported Respiratory: No Symptoms Reported Cardiovascular: See HPI Gastrointestinal: No Symptoms Reported Genitourinary: No Symptoms Reported Musculoskeletal: no symptoms reported Skin: no symptoms reported Psychiatric/Neurological: No Symptoms Reported Endocrine: No Symptoms Reported Past Ykhtiac-Wudtgq-Vacfjb Hx Patient Social History Tobacco Use?: Yes Tobacco type used: Cigarettes Smoking Status: Current Everyday Smoker Use of E-Cig and/or Vaping dev: No Substance use?: No Alcohol Use?: No Immunizations Up To Date Influenza Vaccine Up-to-Date: Yes; Up-to-Date First/Initial COVID19 Vaccinat: 2020 Second COVID19 Vaccination Juan: 2020 Third COVID19 Vaccination Date: 2020 COVID19 Vaccine 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: [employer] Seasonal Allergies Seasonal Allergies: No Past Medical History Surgeries: Yes (COMMON BILE DUCT-ECRP, BLADDER X3, HERNIA REPAIR WITH MESH) Gallbladder, Hysterectomy, Tubal Ligation Respiratory: No 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) Syncope Neurological: No Reproductive Disorders: No 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 Sexually Transmitted Disease: No HIV/AIDS: No Genitourinary: No UTI-Chronic Gastrointestinal: Yes Gastroesophageal Reflux, Chronic Constipation, Irritable Bowel Musculoskeletal: Yes (ARTHRITIS D/T WEATHER, sciatica) Arthritis, Chronic Back Pain, Spasms Endocrine: Yes (HAVING THYROID CHECKED 09/2016) HEENT: No Loss of Vision: Bilateral Hearing Impairment: Denies Cancer: No Psychosocial: Yes (PANIC ATTACKS) Sleep Difficulties, Anxiety, Depression Integumentary: No Blood Disorders: No Adverse Reaction/Blood Tranf: No Family Medical History No Pertinent Family Hx Physical Exam Vital Signs Vital Signs - First Documented 07/30/21 09:13 Temp 35.6 Pulse 184 Resp 26 B/P (MAP) 115/87 (96) Pulse Ox 100 O2 Delivery Room Air Capillary Refill : Less Than 3 Seconds Height, Weight, BMI Height: 5'7.00" Weight: 230lbs. 0.0oz. 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 Norm as Tested, Other (Mildly anxious) Skin: Normal Color, Warm/Dry Progress/Results/Core Measures Results/Orders Lab Results Laboratory Tests Test 07/30/21 09:34 07/30/21 10:14 Range/Units White Blood Count 7.4 4.3-11.0 10^3/uL Red Blood Count 4.42 3.80-5.11 10^6/uL Hemoglobin 14.5 11.5-16.0 g/dL Hematocrit 43 35-52 % Mean Corpuscular Volume 98 80-99 fL Mean Corpuscular Hemoglobin 33 25-34 pg Mean Corpuscular Hemoglobin Concent 34 32-36 g/dL Red Cell Distribution Width 13.2 10.0-14.5 % Platelet Count 270 130-400 10^3/uL Mean Platelet Volume 11.1 9.0-12.2 fL Immature Granulocyte % (Auto) 0 % Neutrophils (%) (Auto) 51 42-75 % Lymphocytes (%) (Auto) 39 12-44 % Monocytes (%) (Auto) 7 0-12 % Eosinophils (%) (Auto) 2 0-10 % Basophils (%) (Auto) 1 0-10 % Neutrophils # (Auto) 3.8 1.8-7.8 10^3/uL Lymphocytes # (Auto) 2.9 1.0-4.0 10^3/uL Monocytes # (Auto) 0.6 0.0-1.0 10^3/uL Eosinophils # (Auto) 0.1 0.0-0.3 10^3/uL Basophils # (Auto) 0.1 0.0-0.1 10^3/uL Immature Granulocyte # (Auto) 0.0 0.0-0.1 10^3/uL Percent Immature Platelet Fraction 3.6 0.0-7.6 % Sodium Level 138 135-145 MMOL/L Potassium Level 3.9 3.6-5.0 MMOL/L Chloride Level 110 H 98-107 MMOL/L Carbon Dioxide Level 19 L 21-32 MMOL/L Anion Gap 9 5-14 MMOL/L Blood Urea Nitrogen 18 7-18 MG/DL Creatinine 0.83 0.60-1.30 MG/DL Estimat Glomerular Filtration Rate 85 BUN/Creatinine Ratio 22 Glucose Level 104 70-105 MG/DL Calcium Level 8.8 8.5-10.1 MG/DL Corrected Calcium 8.9 8.5-10.1 MG/DL Magnesium Level 2.1 1.6-2.4 MG/DL Total Bilirubin 0.3 0.1-1.0 MG/DL Aspartate Amino Transf (AST/SGOT) 13 5-34 U/L Alanine Aminotransferase (ALT/SGPT) 13 0-55 U/L Alkaline Phosphatase 78 40-136 U/L Myoglobin 32.6 10.0-92.0 NG/ML Troponin I < 0.028 <0.028 NG/ML Total Protein 6.6 6.4-8.2 GM/DL Albumin 3.9 3.2-4.5 GM/DL TSH [place] Testing 1.14 0.35-4.94 UIU/ML Prothrombin Time 13.0 12.2-14.7 SEC INR Comment 0.9 0.8-1.4 Activated Partial Thromboplast Time 28 24-35 SEC My Orders Orders - JOSH MCBRIDE MD Cbc With Automated Diff (07/30/21 09:13) Magnesium (07/30/21 09:13) Ekg Tracing (07/30/21 09:13) Comprehensive Metabolic Panel (07/30/21 09:13) Myoglobin Serum (07/30/21 09:13) Protime With Inr (07/30/21 09:13) Partial Thromboplastin Time (07/30/21 09:13) O2 (07/30/21 09:13) Monitor-Rhythm Ecg Trace Only (07/30/21 09:13) Ed Iv/Invasive Line Start (07/30/21 09:13) Troponin I [place] (07/30/21 09:13) Thyroid Analyzer (07/30/21 09:14) Adenosine Injection (Adenocard Injection (07/30/21 09:17) Ekg Tracing (07/30/21 09:31) Ekg Tracing (07/30/21 09:32) Adenosine Injection (Adenocard Injection (07/30/21 10:00) Medications Given in ED Current Medications Medications Dose Ordered Sig/Pascual Route Start Time Stop Time Status Last Admin Dose Admin Adenosine 6 mg ONCE ONCE IV 07/30/21 10:00 07/30/21 10:01 DC 07/30/21 09:26 6 MG Vital Signs/I&O 07/30/21 07/30/21 09:13 11:45 Temp 35.6 Pulse 184 89 Resp 26 20 B/P (MAP) 115/87 (96) 122/93 Pulse Ox 100 100 O2 Delivery Room Air Room Air Blood Pressure Mean: 96 Progress Progress Note #1: Time: 10:08 Progress Note SVT was identified on EKG. Patient was converted to sinus rhythm with adenosine 6 mg IV push. Progress Note #2: Time: 11:35 Progress Note Dyan remained in normal sinus rhythm and was feeling much better. Work-up was unremarkable. She inquired about ways to prevent SVT. She specifically inquired about beta-blockers. While beta-blockers may not directly do much to prevent SVT, they may help in reducing anxiety and stress and improving overall lifestyle, which in turn may decrease risk for SVT. She would like to try a co urse of propranolol. I also advised that she discuss ablation with Dr. Knowles and explore evaluation for sleep apnea. I recommended smoking cessation as well. See discharge instructions for further discussion. Patient requested that I send a copy of this note to Dr. Lo. EKG #1: EKG Time: 09:11 Rate: 179 Rhythm: SVT Comment SVT with no ST elevation or diagnostic ST depression. No abnormal intervals or axis deviation. EKG #2: EKG Time: 09:21 Rate: 178 Comment This EKG demonstrates the conversion of SVT to sinus rhythm after administration of adenosine 6 mg IV push. No ST elevation or depression. EKG #3: EKG Time: : Rate: 104 Rhythm: S.Tach Comment Sinus tachycardia with no ST elevation or depression. No abnormal intervals or axis deviation. This EKG was obtained shortly after conversion to sinus rhythm from SVT with adenosine 6 mg IV bolus. Departure Impression Primary Impression: SVT (supraventricular tachycardia) Additional Impression: Anxiety Disposition: 01 HOME, SELF-CARE Condition: Improved Departure-Patient Inst. Decision time for Depature: 11:34 Referrals: DEYSI LO MD (PCP/Family) Primary Care Physician Patient Instructions: Paroxysmal Supraventricular Tachycardia (DC) Add. Discharge Instructions: Drink plenty of clear liquids to stay well-hydrated. Work toward smoking cessation. Seek assistance from your primary care provider if necessary. Follow-up with Dr. Knowles in the near future to discuss your SVT and medications. In the meantime, you may try a low-dose of propranolol. This may help control anxiety and tachycardia. Stop propranolol if you have lightheadedness, low heart rate, or low blood pressure. Consider discussing evaluation for sleep apnea with your primary care provider or Dr. Knowles as sleep apnea may be a trigger for cardiac rhythm problems. Call with questions or concerns. Return to the ER if you have worsening symptoms or if you have SVT that cannot b e aborted with bearing down or ice to the face. All discharge instructions reviewed with patient and/or family. Voiced understa nding. Scripts Propranolol HCl (Propranolol HCl) 40 Mg Tablet 40 MG PO BID, #30 TAB Prov: JOSH MCBRIDE MD 07/30/21 Copy Copies To 1: DEYSI LO MD Copies To 2: JOHN PAUL KNOWLES MD, JOSHUA T MD Jul 30, 2021 10:04
[2021-07-30 10:37] LABS: INR 0.9 (0.8-1.4)
[2021-07-30 10:56] LABS: ALBUMIN 3.9 GM/DL (3.2-4.5); CALCIUM 8.8 MG/DL (8.5-10.1); CREATININE SERUM 0.83 MG/DL (0.60-1.30); MAGNESIUM 2.1 MG/DL (1.6-2.4); POTASSIUM 3.9 MMOL/L (3.6-5.0); TOTAL PROTEIN 6.6 GM/DL (6.4-8.2)
[2021-07-30 11:18] LABS: TSH (THYROID ANALYZER) 1.14 UIU/ML (0.35-4.94)
[2021-07-30] MEDS ORDERED: PROP40TA5 PO (11:36)
[2021-07-30 11:45] VITALS: BP 122/93
== END 2021-07-30 11:45 | disposition home or self-care (01) ==
LOC: EDUNIT# 09:09 → ER 09:11
DX: I47.1 Supraventricular tachycardia (principal); F41.9 Anxiety disorder, unspecified; F17.210 Nicotine dependence, cigarettes, uncomplicated
CPT/HCPCS: 36415; 80053; 83735; 83874; 84443; 84484; 85025; 85610; 85730; 93005; 93041

== ENCOUNTER 2021-12-04 14:20 | Emergency (ER) | payer SELFPAY ==
[~2021-12-04] VITALS: Ht 167 cm; Wt 90.7 kg
[~2021-12-04 14:20] MED LIST changes: +PROP40TA5 PO
--- NOTE | 2021-12-04 14:34 | ED Cardiac General ---
History of Present Illness General Chief Complaint: Cardiac/General Problems Stated Complaint: WEAKNESS Source: patient, EMS Exam Limitations: no limitations History of Present Illness Date Seen by Provider: Dec 04, 2021 Time Seen by Provider: 14:20 Initial Comments 51-year-old female with past medical history of SVT coming in via EMS due to concerns for being in SVT. Started greater than 2 hours prior to arrival, has happened multiple times in her life, she tried taking her metoprolol 20 mg and tried doing vagal maneuvers which were unsuccessful. Eventually she called EMS because she was starting to feel lightheaded. They got an EKG confirming SVT with a rate of 160. Blood pressure was normal. They gave her IV fluids and gave her 6 mg of adenosine which converted her to sinus rhythm. Patient is currently at her baseline. She wants to follow-up with Dr. Knowles, but will not have insurance again until March. She is otherwise denying any current chest pain, shortness of breath, abdominal pain, nausea, vomiting, diarrhea, fever, chills, weakness, numbness, or any other concerns Allergies and Home Medications Allergies Coded Allergies: hydrocodone (Verified Adverse Reaction, Severe, ANXIETY, 10/07/16) Patient Home Medication List Home Medication List Reviewed: Yes Alprazolam (Xanax) Unknown Strength Tablet, 1 MG PO TID, (Reported) Entered as Reported by: CHACHO SILVER on 07/25/15 1403 Eszopiclone (Lunesta) 3 Mg Tablet, 3 MG PO HS, (Reported) Entered as Reported by: MARY JACOBSON on 09/08/09 1800 Ofloxacin (Ofloxacin) 5 Ml Drops, 5 DROPS OP Q6H Prescribed by: KEE NUNEZ on 07/04/18 0840 Oxycodone HCl/Acetaminophen (Oxycodone-Acetaminophen 5-325) 1 Each Tablet, 1 EACH PO Q6H PRN for PAIN-MODERATE Prescribed by: LOVE BEAVER on 09/28/16 1316 Oxycodone HCl/Acetaminophen (Percocet 5-325 mg Tablet) 1 Each Tablet, 1 EACH PO Q4H PRN for ABDOMINAL PAIN Prescribed by: CORONA ANDREWS on 10/07/16 1531 Oxycodone HCl/Acetaminophen (Oxycodone-Acetaminophen 5-325) 1 Each Tablet, 1 EACH PO Q6H PRN for PAIN Prescribed by: KEE NUNEZ on 01/17/18 1257 Oxycodone HCl/Acetaminophen (Oxycodone-Acetaminophen 5-325) 1 Each Tablet, 1 EACH PO Q6H PRN for PAIN-MODERATE Prescribed by: BRITTANY BISHOP on 03/08/18 0744 Oxycodone HCl/Acetaminophen (Oxycodone-Acetaminophen 5-325) 1 Each Tablet, 1 EACH PO Q6H PRN for PAIN-MODERATE Prescribed by: KEE NUNEZ on 07/04/18 0840 Prednisone (Prednisone) 20 Mg Tab, 40 MG PO DAILY Prescribed by: KEE NUNEZ on 01/17/18 1257 Prednisone (Prednisone) 20 Mg Tab, 40 MG PO DAILY Prescribed by: BRITTANY BISHOP on 03/08/18 0745 Propranolol HCl (Propranolol HCl) 40 Mg Tablet, 40 MG PO BID Prescribed by: JOSH SCHWARTZ on 07/30/21 1136 Quetiapine Fumarate (Seroquel) 400 Mg Tablet, 400 MG PO HS, (Reported) Entered as Reported by: CHACHO SILVER on 07/25/15 1403 Review of Systems Review of Systems Constitutional: No fever EENTM: No Blurred Vision Respiratory: Denies Cough Cardiovascular: Denies Chest Pain Gastrointestinal: Denies Abdominal Pain Genitourinary: No Symptoms Reported Musculoskeletal: no symptoms reported Skin: no symptoms reported Psychiatric/Neurological: No Symptoms Reported Endocrine: No Symptoms Reported Hematologic/Lymphatic: No Symptoms Reported All Other Systems Reviewed Negative Unless Noted: Yes Past Jednywv-Ujjqqh-Szcfgk Hx Patient Social History Tobacco Use?: Yes Tobacco type used: Cigarettes Substance use?: No Alcohol Use?: Yes Immunizations Up To Date First/Initial COVID19 Vaccinat: 2020 Second COVID19 Vaccination Juan: 2020 Third COVID19 Vaccination Date: 2020 Seasonal Allergies Seasonal Allergies: No Past Medical History Surgeries: Yes (COMMON BILE DUCT-ECRP, BLADDER X3, HERNIA REPAIR WITH MESH) Gallbladder, Hysterectomy, Tubal Ligation Respiratory: No 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) Syncope Neurological: No Reproductive Disorders: No 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 Disorders: 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 [employer]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 Sexually Transmitted Disease: No HIV/AIDS: No Genitourinary: No UTI-Chronic Gastrointestinal: Yes Gastroesophageal Reflux, Chronic Constipation, Irritable Bowel Musculoskeletal: Yes (ARTHRITIS D/T WEATHER, sciatica) Arthritis, Chronic Back Pain, Spasms Endocrine: Yes (HAVING THYROID CHECKED 09/2016) HEENT: No Loss of Vision: Bilateral Hearing Impairment: Denies Cancer: No Psychosocial: Yes (PANIC ATTACKS) Sleep Difficulties, Anxiety, Depression Integumentary: No Blood Disorders: No Adverse Reaction/Blood Tranf: No Family Medical History No Pertinent Family Hx Physical Exam Vital Signs Vital Signs - First Documented 12/04/21 14:24 Temp 36.5 Pulse 105 Resp 22 B/P (MAP) 123/88 (100) Pulse Ox 97 O2 Delivery Room Air Capillary Refill : Height, Weight, BMI Height: 5'7.00" Weight: 230lbs. 0.0oz. [id number]; 31.00 BMI Method:Stated General Appearance: No Apparent Distress, WD/WN HEENT: PERRL/EOMI, Normal ENT Inspection, Pharynx Normal Neck: Full Range of Motion, Normal Inspection, Non Tender, Supple Respiratory: Chest Non Tender, Lungs Clear, Normal Breath Sounds, No Accessory Muscle Use, No Respiratory Distress Cardiovascular: Regular Rate, Rhythm, No Edema, Normal Peripheral Pulses Gastrointestinal: Normal Bowel Sounds, Non Tender, Soft; No Distended, No Guarding Extremity: Normal Capillary Refill, Normal Inspection, Normal Range of Motion, Non Tender, No Calf Tenderness, No Pedal Edema Neurologic/Psychiatric: Alert, No Motor/Sensory Deficits, Normal Mood/Affect Skin: Normal Color, Warm/Dry Lymphatic: No Adenopathy Progress/Results/Core Measures Results/Orders My Orders Orders - ED PERALES MD Ekg Tracing (12/04/21 14:22) Vital Signs/I&O 12/04/21 14:24 Temp 36.5 Pulse 105 Resp 22 B/P (MAP) 123/88 (100) Pulse Ox 97 O2 Delivery Room Air Progress Progress Note : Progress Note 51-year-old female with above history coming in due to concerns for SVT. ABCs were intact and vitals were stable on presentation. The patient was converted prior to arrival back to sinus rhythm. I personally reviewed the EKG from EMS and she is in SVT with a rate of 160. EKG here with a rate of 86 and sinus rhythm. The patient is back to her baseline and has no concerns at this time. She knows she needs to follow-up with cardiology, and she will once she has insurance in March. She still has some metoprolol at home to take as needed. She was then discharged home in stable condition with strict return precautions Initial ECG Impression Date: Dec 04, 2021 Initial ECG Impression Time: 14:27 Initial ECG Rate: 86 Initial ECG Rhythm: Normal Sinus Comment Narrow QRS, normal axis, no significant ST changes or T wave abnormality Departure Impression Primary Impression: SVT (supraventricular tachycardia) Disposition: 01 HOME, SELF-CARE Condition: Improved Departure-Patient Inst. Decision time for Depature: 14:33 Referrals: DEYSI SHUKLA MD (PCP/Family) Primary Care Physician JOHN PAUL KNOWLES MD Patient Instructions: Paroxysmal Supraventricular Tachycardia (DC) Add. Discharge Instructions: If this happens again at home you can try the modified Valsalva maneuver which we showed you. Blow into the syringe for 15 seconds with a lot of effort while you are sitting straight up. Immediately lay back and lift her legs in the air for roughly 30 seconds. You can do this 2-3 times to see if that helps. If does not successful then at that point I would call EMS. I would also try t aking your metoprolol and drinking fluids at the same time. Follow-up with Dr. Knowles when you are able. Work/School Note: Work Release Form Date Seen in the Emergency Department: Dec 04, 2021 Return to Work: Dec 05, 2021 Restrictions: No Restrictions ED PERALES MD Dec 04, 2021 14:34
[2021-12-04 15:30] VITALS: BP 115/84
== END 2021-12-04 15:40 | disposition home or self-care (01) ==
LOC: EDUNIT# 14:20 → ER 14:21
DX: I47.1 Supraventricular tachycardia (principal); F17.210 Nicotine dependence, cigarettes, uncomplicated
CPT/HCPCS: 93005